=== PATIENT | female | born 1945 | race Caucasian/White ===

== ENCOUNTER 2018-12-04 19:16 | Inpatient (IN) | payer MEDICARE ==
--- NOTE | 2018-12-04 19:51 | RADIOLOGY REPORT (SQ) ---
EXAM DESCRIPTION: CHEST SINGLE VIEW COMPLETED DATE/TIME: 12/04/2018 7:40 pm REASON FOR STUDY: mp sepsis protocol COMPARISON: None. EXAM PARAMETERS: NUMBER OF VIEWS: One view. TECHNIQUE: Single frontal radiographic view of the chest acquired. RADIATION DOSE: NA LIMITATIONS: None. FINDINGS: LUNGS AND PLEURA: Hyperexpansion of the lungs. Increased opacification in the right base. MEDIASTINUM AND HILAR STRUCTURES: No masses. Contour normal. HEART AND VASCULAR STRUCTURES: Heart size is borderline. No janki pulmonary edema. BONES: No acute findings. HARDWARE: None in the chest. OTHER: No other significant finding. IMPRESSION: Chronic lung changes. Right lower lobe pneumonia. Cardiomegaly without pulmonary edema . TECHNICAL DOCUMENTATION: JOB ID: [id number] [employer]- All Rights Reserved Reading location - IP/workstation name: [email or web address]
[2018-12-04] MEDS ORDERED: ALBUTEROL SULFATE 0.083% NEB 2.5 MG/3 ML AMPUL NEB ONE (20:05)
--- NOTE | 2018-12-04 20:10 | ER Document Report ---
ED General - General Stated Complaint: SOB Time Seen by Provider: 12/04/18 19:27 Primary Care Provider: AMY MONSIVAIS MD [Primary Care Provider] - Follow up as needed TRAVEL OUTSIDE OF THE [place] IN LAST 30 DAYS: No - HPI Notes: Patient is a 73-year-old female that presents to the emergency department for chief complaint of shortness of breath. Patient has history of COPD and wears 2 L nasal cannula oxygen at home. Patient reports increased shortness of breath over the last 2 days. She has been using her home albuterol inhaler and nebulizer every 4-6 hours. She denies increased sputum production. Family states that she has been diaphoretic and having intermittent chills but they have not checked her temperature. Patient has been coughing denies change in her cough. She denies any nausea or vomiting. She does report a pain in her chest that is intermittent for the last 2 days as well. She describes it as a heaviness on the left side that radiates across to the right. She denies history of CAD. Patient did receive 125 mg of Solu- Medrol and 2 DuoNeb's by EMS prior to arrival and reports no improvement of symptoms. Patient denies previous intubations or requiring BiPAP for her COPD. Past Medical History: COPD, hypertension Past Surgical History: Reviewed in chart Social History: Former smoker. Denies alcohol. Lives at home Family History: Reviewed and noncontributory for presenting illness Allergies: Reviewed, see documented allergy list. REVIEW OF SYSTEMS: CONSTITUTIONAL : No fever chills diaphoresis No recent illness EENT: No vision changes No congestion No sore throat CARDIOVASCULAR: chest pain No palpitations RESPIRATORY: shortness of breath cough difficulty breathing GASTROINTESTINAL: No abdominal pain No nausea No vomiting No diarrhea GENITOURINARY: No dysuria No hematuria No difficulty urinating MUSCULOSKELETAL: No back pain No leg pain No arm pain SKIN: No rashes No lesions LYMPHATIC: No swollen, enlarged glands. NEUROLOGICAL: No lightheadedness No headache No weakness No paresthesias PSYCHIATRIC: No anxiety No depression PHYSICAL EXAMINATION: Vital signs reviewed, nursing noted reviewed. GENERAL: In moderate distress, diaphoretic, alert HEAD: Atraumatic, normocephalic. EYES: Eyes appear normal, extraocular movements intact, sclera anicteric, conjunctiva are normal. ENT: nares patent, oropharynx clear without exudates. Moist mucous membranes. NECK: Normal range of motion, supple without lymphadenopathy LUNGS: Breath sounds significantly diminished bilaterally with prolonged expiratory phase and end expiratory wheezing to auscultation bilaterally and equal. Tachypneic with accessory muscle use HEART: Tachycardic rate and regular rhythm without murmurs ABDOMEN: Soft, nontender, normoactive bowel sounds. No rebound, guarding, or rigidity. No masses appreciated. EXTREMITIES: Nontender, good range of motion, no pitting or edema. NEUROLOGICAL: No focal neurological deficits. Moves all extremities spontaneously Motor and sensory grossly intact on exam. PSYCH: Normal mood, normal affect. SKIN: Warm, diaphoretic, normal turgor, no rashes or lesions noted on exposed skin Past Medical History - Social History Smoking Status: Former Smoker Family History: Reviewed & Not Pertinent Physical Exam - Vital signs Vitals: Temp Pulse Resp BP Pulse Ox 97.5 F 111 H 26 H 165/88 H 94 12/04/18 19:47 12/04/18 19:47 12/04/18 19:47 12/04/18 19:47 12/04/18 19:47 Course - Re-evaluation Re-evalutation: 12/04/18 21:21 Vitals reviewed. Nursing notes reviewed. Patient was 88% on 4 L nasal cannula when she presented to the emergency room. She was tripoding with increased work of breathing. Patient was started on BiPAP and given albuterol. She did receive Solu-Medrol and DuoNeb prior to arrival by EMS. On reevaluation after BiPAP and aerosols patient appears much better. Her work of breathing has significantly decreased. She is still diminished to auscultation bilaterally with wheezing but is moving air better. Her O2 sat is stable. ABG shows hypercapnic respiratory failure. 12/04/18 21:39 Patient's chest x-ray shows right lower lobe pneumonia. She does have an elevated WBC count and is meeting sepsis criteria. Patient has received Rocephin and azithromycin. She was also given 1 L of normal saline. Her lab work also shows a hyponatremia. Patient is anemic which is chronic for her and not requiring blood transfusion. Her care was discussed with Dr. Monsivais who has requested that I consult Dr. Sanders and add a CTA of the chest on. He has accepted admission. I did page Dr. Curseen and left a message however he is not applications specialist tonight, consult has been placed in the computer. Patient has continued to improve on BiPAP but will remain on it for her hypercapnic respiratory failure. She is stable at time of admission Laboratory 12/04/18 12/04/18 12/04/18 20:50 20:50 20:50 WBC 12.9 H RBC 3.74 Hgb 10.8 L Hct 32.7 L MCV 87 MCH 28.8 MCHC 33.0 RDW 13.4 Plt Count 394 Total Counted 100 Seg Neutrophils % Not Reportable Seg Neuts % (Manual) 93 H Band Neutrophils % 2 L Lymphocytes % Not Reportable Lymphocytes % (Manual) 3 L Monocytes % Not Reportable Monocytes % (Manual) 2 L Eosinophils % Not Reportable Eosinophils % (Manual) 0 Basophils % Not Reportable Basophils % (Manual) 0 Absolute Neutrophils Not Reportable Abs Neuts (Manual) 12.3 H Absolute Lymphocytes Not Reportable Abs Lymphs (Manual) 0.4 L Absolute Monocytes Not Reportable Abs Monocytes (Manual) 0.3 Absolute Eosinophils Not Reportable Absolute Eos (Manual) 0.0 Absolute Basophils Not Reportable Abs Basophils (Manual) 0.0 Platelet Comment ADEQUATE Hypochromasia 1+ Stomatocytes 1+ PT 12.8 INR 0.96 Carbonic Acid HCO3/H2CO3 Ratio ABG pH ABG pCO2 ABG pO2 ABG HCO3 ABG Total CO2 ABG O2 Saturation ABG Base Excess FiO2 Sodium 129.2 L Potassium 4.6 Chloride 84 L Carbon Dioxide 37 H Anion Gap 8 BUN 15 Creatinine 0.31 L Est GFR ( Amer) > 60 Est GFR (Non-Af Amer) > 60 Glucose 169 H Calcium 9.0 Total Bilirubin 0.3 Direct Bilirubin 0.3 Neonat Total Bilirubin Not Reportable Neonat Direct Bilirubin Not Reportable Neonat Indirect Bili Not Reportable AST 17 ALT 15 Alkaline Phosphatase 113 Troponin I Total Protein 7.0 Albumin 3.7 12/04/18 12/04/18 20:50 20:59 WBC RBC Hgb Hct MCV MCH MCHC RDW Plt Count Total Counted Seg Neutrophils % Seg Neuts % (Manual) Band Neutrophils % Lymphocytes % Lymphocytes % (Manual) Monocytes % Monocytes % (Manual) Eosinophils % Eosinophils % (Manual) Basophils % Basophils % (Manual) Absolute Neutrophils Abs Neuts (Manual) Absolute Lymphocytes Abs Lymphs (Manual) Absolute Monocytes Abs Monocytes (Manual) Absolute Eosinophils Absolute Eos (Manual) Absolute Basophils Abs Basophils (Manual) Platelet Comment Hypochromasia Stomatocytes PT INR Carbonic Acid 2.22 H HCO3/H2CO3 Ratio 16:1 ABG pH 7.32 L ABG pCO2 73.8 H* ABG pO2 91.2 ABG HCO3 37.2 H ABG Total CO2 39.4 H ABG O2 Saturation 96.0 ABG Base Excess 8.7 FiO2 40% Sodium Potassium Chloride Carbon Dioxide Anion Gap BUN Creatinine Est GFR ( Amer) Est GFR (Non-Af Amer) Glucose Calcium Total Bilirubin Direct Bilirubin Neonat Total Bilirubin Neonat Direct Bilirubin Neonat Indirect Bili AST ALT Alkaline Phosphatase Troponin I 0.028 Total Protein Albumin Chest X-Ray 12/04/18 19:26 IMPRESSION: Chronic lung changes. Right lower lobe pneumonia. Cardiomegaly without pulmonary edema. - Vital Signs Vital signs: Temp Pulse Resp BP Pulse Ox 97.5 F 111 H 26 H 165/88 H 94 12/04/18 19:47 12/04/18 19:47 12/04/18 19:47 12/04/18 19:47 12/04/18 19:47 - Laboratory Result Diagrams: 12/04/18 20:50 12/04/18 20:50 Laboratory results interpreted by me: 12/04/18 12/04/18 12/04/18 20:50 20:50 20:59 WBC 12.9 H Hgb 10.8 L Hct 32.7 L Seg Neuts % (Manual) 93 H Band Neutrophils % 2 L Lymphocytes % (Manual) 3 L Monocytes % (Manual) 2 L Abs Neuts (Manual) 12.3 H Abs Lymphs (Manual) 0.4 L Carbonic Acid 2.22 H ABG pH 7.32 L ABG pCO2 73.8 H* ABG HCO3 37.2 H ABG Total CO2 39.4 H Sodium 129.2 L Chloride 84 L Carbon Dioxide 37 H Creatinine 0.31 L Glucose 169 H - EKG Interpretation by Me Additional EKG results interpreted by me: 12/04/18 20:09 Interpreted by myself 193: Sinus tachycardia, rate 112, normal axis, no ectopy, left bundle branch block Critical Care Note - Critical Care Note Total time excluding time spent on procedures (mins): 40 Comments: Critical care time 40 exclusive from separate billable procedures for a patient requiring complex medical decision making, and high potential for clinical deterioration. Time spent obtaining history from patient or surrogate, d iscussions with consultants, development of treatment plan with patient or surrogate, evaluation of patient's response to treatment, examination of patient, ordering and performing treatments and interventions, ordering and review of laboratory studies, re-evaluation of patient's condition, ordering and review of radiographic studies and review of old charts Discharge - Discharge Clinical Impression: COPD exacerbation, Hyponatremia RLL pneumonia Qualifiers: Pneumonia type: due to unspecified organism Qualified Code(s): J18.1 - Lobar pneumonia, unspecified organism Hypercapnic respiratory failure Qualifiers: Chronicity: acute Qualified Code(s): J96.02 - Acute respiratory failure with hypercapnia Sepsis Qualifiers: Sepsis type: sepsis due to unspecified organism Qualified Code(s): A41.9 - S epsis, unspecified organism Condition: Stable Disposition: ADMITTED INPATIENT Admitting Provider: Ish[facility] Unit Admitted: [facility]U Referrals: AMY MONSIVAIS MD [Primary Care Provider] - Follow up as needed
[2018-12-04] MEDS ORDERED: CEFTRIAXONE 1 GM/D5W RTU 1 GM/50 ML RTUPB IV ONE (20:38)
[2018-12-04] MEDS ORDERED: AZITHROMYCIN INJ 500 MG VIAL IV ONE (20:38)
[2018-12-04 21:08] LABS: HEMATOCRIT 32.7 % (36.0-47.0); HEMOGLOBIN 10.8 g/dL (12.0-15.5); MEAN CORPUSCULAR HEMOGLOBIN 28.8 pg (27.0-33.4); MEAN CORPUSCULAR VOLUME 87 fl (80-97); PLATELET COUNT 394 10^3/uL (150-450); RED BLOOD COUNT 3.74 10^6/uL (3.72-5.28); RED CELL DISTRIBUTION WIDTH 13.4 % (11.5-14.0); WHITE BLOOD COUNT 12.9 10^3/uL (4.0-10.5)
[2018-12-04 21:09] LABS: ARTERIAL BLOOD BASE EXCESS 8.7 mmol/L; ARTERIAL BLOOD H2CO3 2.22 mmol/L (1.05-1.35); ARTERIAL BLOOD HCO3 37.2 mmol/L (20-24); ARTERIAL BLOOD PH 7.32 (7.35-7.45); ARTERIAL BLOOD PO2 91.2 mmHg (80-100); ARTERIAL BLOOD TOTAL CO2 39.4 mmol/L (21-25)
[2018-12-04 21:13] LABS: ARTERIAL BLOOD FIO2 40%
[2018-12-04 21:13] LABS: INTERNATIONAL RATION (INR) 0.96; PROTHROMBIN TIME 12.8 SEC (11.4-15.4)
[2018-12-04 21:17] LABS: ARTERIAL BLOOD PCO2 73.8 mmHg (35-45)
--- NOTE | 2018-12-04 21:20 | EKG REPORT ---
SEVERITY:- ABNORMAL ECG - SINUS TACHYCARDIA BIATRIAL ABNORMALITIES LEFT BUNDLE BRANCH BLOCK : Confirmed by: Matt Thurman 04-Dec-2018 21:19:40
[2018-12-04 21:23] LABS: ALANINE AMINOTRANSFERASE 15 U/L (9-52); ALBUMIN 3.7 g/dL (3.5-5.0); ALKALINE PHOSPHATASE 113 U/L (38-126); ANION GAP 8 (5-19); ASPARTATE AMINO TRANSFERASE 17 U/L (14-36); BILIRUBIN,DIRECT 0.3 mg/dL (0.0-0.4); BILIRUBIN,TOTAL 0.3 mg/dL (0.2-1.3); BLOOD UREA NITROGEN 15 mg/dL (7-20); CARBON DIOXIDE 37 mmol/L (22-30); CHLORIDE 84 mmol/L (98-107); GLUCOSE 169 mg/dL (75-110); POTASSIUM 4.6 mmol/L (3.6-5.0)
[2018-12-04 21:29] LABS: ABSOLUTE LYMPHOCYTES# (MANUAL) 0.4 10^3/uL (0.5-4.7); ABSOLUTE MONOCYTES # (MANUAL) 0.3 10^3/uL (0.1-1.4); BAND NEUTROPHILS % (MANUAL) 2 % (3-5); BASOPHILS % (MANUAL) 0 % (0-2); EOSINOPHILS % (MANUAL) 0 % (0-6); LYMPHOCYTES % (MANUAL) 3 % (13-45); MONOCYTES % (MANUAL) 2 % (3-13); SEGMENTED NEUTROPHILS % (MAN) 93 % (42-78); TOTAL CELLS COUNTED 100
[2018-12-04 21:30] LABS: HYPOCHROMASIA 1+; STOMATOCYTES 1+
[2018-12-04 21:31] LABS: PLATELET COMMENT ADEQUATE
[2018-12-04] MEDS ORDERED: NORMAL SALINE 1000 ML 1,000 ML IV ONE (21:38)
[2018-12-04] MEDS ORDERED: METHYLPREDNISOLONE INJ 40 MG/1 ML SDV IV SCH (22:00)
[2018-12-04] MEDS ORDERED: METHYLPREDNISOLONE INJ 125 MG/2 ML SDV IV SCH (22:00)
[2018-12-04] MEDS ORDERED: CEFEPIME 2 GM/D5W RTU 50 ML IV SCH (22:00)
[2018-12-04 23:31] LABS: AMORPHOUS SEDIMENT,URINE TRACE /HPF; APPEARANCE,URINE CLOUDY; BILIRUBIN,URINE NEGATIVE (NEGATIVE); COLOR,URINE YELLOW; GLUCOSE, URINE NEGATIVE (NEGATIVE); KETONES,URINE NEGATIVE (NEGATIVE); LEUKOCYTE ESTERASE,URINE NEGATIVE (NEGATIVE); NITRITE,URINE NEGATIVE (NEGATIVE); PROTEIN,URINE 100 mg/dL (NEGATIVE); URINE SPECIFIC GRAVITY 1.014; UROBILINOGEN,URINE NEGATIVE mg/dL (<2.0)
[2018-12-05] MEDS: GUAIFENESIN 600 MG TABLET.SA PO SCH ×3 (02:34→22:23)
[2018-12-05] MEDS: LEVOFLOXACIN 500 MG/D5W RTU 500 MG/100 ML RTUPB IV SCH ×2 (02:40→22:23)
[2018-12-05] MEDS ORDERED: METHYLPREDNISOLONE INJ 125 MG/2 ML SDV IV ONE (02:45)
[2018-12-05] MEDS: FAMOTIDINE INJ/PF 20 MG/2 ML SDV IV SCH ×2 (02:54→09:21)
[2018-12-05] MEDS: NORMAL SALINE 1000 ML 1,000 ML IV PRN ×2 (02:57→22:36)
[2018-12-05] MEDS ORDERED: LEVOFLOXACIN 500 MG/D5W RTU 500 MG/100 ML RTUPB IV ONE (03:00)
[2018-12-05] MEDS: CEFEPIME 1 GM/D5W RTU 1 GM/50 ML RTUPB IV SCH (06:03)
[2018-12-05 06:13] LABS: HEMATOCRIT 30.9 % (36.0-47.0); HEMOGLOBIN 10.4 g/dL (12.0-15.5); MEAN CORPUSCULAR HEMOGLOBIN 29.5 pg (27.0-33.4); MEAN CORPUSCULAR HGB CONC 33.7 g/dL (32.0-36.0); MEAN CORPUSCULAR VOLUME 88 fl (80-97); PLATELET COUNT 320 10^3/uL (150-450); RED BLOOD COUNT 3.53 10^6/uL (3.72-5.28); RED CELL DISTRIBUTION WIDTH 13.7 % (11.5-14.0)
[2018-12-05 06:33] LABS: ANION GAP 9 (5-19); BLOOD UREA NITROGEN 13 mg/dL (7-20); CALCIUM 8.4 mg/dL (8.4-10.2); CARBON DIOXIDE 33 mmol/L (22-30); CHLORIDE 91 mmol/L (98-107); GLUCOSE 137 mg/dL (75-110); POTASSIUM 4.8 mmol/L (3.6-5.0)
[2018-12-05] MEDS: IPRATROPIUM/ALBUTEROL 0.5-2.5 MG/3 ML AMPUL NEB SCH ×4 (08:45→20:18)
--- NOTE | 2018-12-05 08:52 | PDOC H&P ---
History of Present Illness Admission Date/PCP: 12/04/18 22:35 AMY MONSIVAIS MD Patient complains of: Difficulty in breathing History of Present Illness: AMIRAH CHEW is a 73 year old female This is a 73-year-old female with a significant history of the COPD history of the Mycobacterium avium complexAnd history of the pulmonary nodules and history of the anemia currently see Dr. Solorzano as outpatients for the COPD and the nodules treated with a several antibiotic course for this on and off came to the emergency department with the increasing the more shortness of the breath for the last 2 daysAnd also increasing the sputum secretions with the yellowish- greenish color and not feeling well and the patient's oxygen saturations go down which he normally required to treat 2 to 3 L oxygen at home in emergency department patient was put on the BiPAP and feels better CO2 retention's was high When I saw the patient on the IMCU patient is currently on a BiPAP doing okay denied any chest pain denied any abdominal pain no nausea no vomiting Patient son on the bedside requesting to see Dr. Solorzano but is not available as per discussed with him will ask Dr. Sanders's to see him Patient to son on the bedside discussed with the patient's CODE STATUS patients do not want intubation and ventilations Start the patient on IV antibiotic nebulizer treatment since IV Solu-Medrol Past Medical History Pulmonary Medical History: Reports: Bronchitis, Chronic Obstructive Pulmonary Disease (COPD), Pneumonia, Other Pulmonary History Note: Mycobacterium avium complex GI Medical History: Reports: Gastroesophageal Reflux Disease Psychiatric Medical History: Reports: Depression Hematology: Reports: Anemia Social History Information Source: Patient Smoking Status: Former Smoker Frequency of Alcohol Use: None Hx Recreational Drug Use: No Hx Prescription Drug Abuse: No Family History Family History: Reviewed & Not Pertinent Parental Family History Reviewed: Yes Children Family History Reviewed: Yes Sibling(s) Family History Reviewed.: Yes Medication/Allergy Allergies/Adverse Reactions: codeine Allergy (Mild, Verified 12/05/18 02:28) erythromycin base Allergy (Mild, Verified 12/05/18 02:29) Review of Systems Constitutional: PRESENT: fever(s), weakness. ABSENT: chills, headache(s), weight gain, weight loss Eyes: ABSENT: visual disturbances Ears: ABSENT: hearing changes Cardiovascular: PRESENT: dyspnea on exertion. ABSENT: chest pain, edema, orthropnea, palpitations Respiratory: PRESENT: cough, dyspnea, sputum. ABSENT: hemoptysis Gastrointestinal: ABSENT: abdominal pain, constipation, diarrhea, hematemesis, hematochezia, nausea, vomiting Genitourinary: ABSENT: dysuria, hematuria Musculoskeletal: ABSENT: joint swelling Integumentary: ABSENT: rash, wounds Neurological: ABSENT: abnormal gait, abnormal speech, confusion, dizziness, focal weakness, syncope Psychiatric: ABSENT: anxiety, depression, homidical ideation, suicidal ideation Endocrine: ABSENT: cold intolerance, heat intolerance, menstrual abnormalities, polydipsia, polyuria Hematologic/Lymphatic: ABSENT: easy bleeding, easy bruising, lymphadenopathy Physical Exam Vital Signs: Temp Pulse Resp BP Pulse Ox 98.4 F 117 H 16 117/61 100 12/05/18 04:24 12/05/18 07:00 12/05/18 04:24 12/05/18 04:24 12/05/18 04:24 Intake & Output 12/04/18 12/05/18 12/06/18 06:59 06:59 06:59 Intake Total 1150 Output Total 500 Balance 650 Weight 36 kg Physical Exam: Currently on a BiPAP General appearance: PRESENT: no acute distress, mild distress, thin Head exam: PRESENT: atraumatic, normocephalic Eye exam: PRESENT: conjunctiva pink, EOMI, PERRLA. ABSENT: scleral icterus Ear exam: PRESENT: normal external ear exam Mouth exam: PRESENT: moist, tongue midline Neck exam: PRESENT: full ROM. ABSENT: carotid bruit, JVD, lymphadenopathy, thyromegaly Respiratory exam: PRESENT: decreased breath sounds, wheezes Cardiovascular exam: PRESENT: RRR. ABSENT: diastolic murmur, rubs, systolic murmur Vascular exam: PRESENT: normal capillary refill GI/Abdominal exam: PRESENT: normal bowel sounds, soft. ABSENT: distended, guarding, mass, organolmegaly, rebound, tenderness Rectal exam: PRESENT: deferred Extremities exam: ABSENT: pedal edema Neurological exam: PRESENT: alert, awake, oriented to person, oriented to place, oriented to time, oriented to situation, CN II-XII grossly intact. ABSENT: motor sensory deficit Psychiatric exam: PRESENT: appropriate affect, normal mood. ABSENT: homicidal ideation, suicidal ideation Skin exam: PRESENT: dry, intact, warm. ABSENT: cyanosis, rash Results Laboratory Results: 12/05/18 05:49 12/05/18 05:49 12/04/18 12/04/18 12/04/18 20:50 20:50 20:59 WBC 12.9 H RBC 3.74 Hgb 10.8 L Hct 32.7 L MCV 87 MCH 28.8 MCHC 33.0 RDW 13.4 Plt Count 394 Seg Neutrophils % Not Reportable Lymphocytes % Not Reportable Monocytes % Not Reportable Eosinophils % Not Reportable Basophils % Not Reportable Absolute Neutrophils Not Reportable Absolute Lymphocytes Not Reportable Absolute Monocytes Not Reportable Absolute Eosinophils Not Reportable Absolute Basophils Not Reportable Carbonic Acid 2.22 H HCO3/H2CO3 Ratio 16:1 ABG pH 7.32 L ABG pCO2 73.8 H* ABG pO2 91.2 ABG HCO3 37.2 H ABG O2 Saturation 96.0 ABG Base Excess 8.7 FiO2 40% Sodium 129.2 L Potassium 4.6 Chloride 84 L Carbon Dioxide 37 H Anion Gap 8 BUN 15 Creatinine 0.31 L Est GFR ( Amer) > 60 Est GFR (Non-Af Amer) > 60 Glucose 169 H Lactic Acid Calcium 9.0 Total Bilirubin 0.3 AST 17 ALT 15 Alkaline Phosphatase 113 Total Protein 7.0 Albumin 3.7 Urine Color Urine Appearance Urine pH Ur Specific [place] Urine Protein Urine Glucose (UA) Urine Ketones Urine Blood Urine Nitrite Ur Leukocyte Esterase Urine WBC (Auto) Urine RBC (Auto) 12/04/18 12/04/18 12/05/18 21:13 23:10 05:49 WBC 3.0 L RBC 3.53 L Hgb 10.4 L Hct 30.9 L MCV 88 MCH 29.5 MCHC 33.7 RDW 13.7 Plt Count 320 Seg Neutrophils % Lymphocytes % Monocytes % Eosinophils % Basophils % Absolute Neutrophils Absolute Lymphocytes Absolute Monocytes Absolute Eosinophils Absolute Basophils Carbonic Acid HCO3/H2CO3 Ratio ABG pH ABG pCO2 ABG pO2 ABG HCO3 ABG O2 Saturation ABG Base Excess FiO2 Sodium Potassium Chloride Carbon Dioxide Anion Gap BUN Creatinine Est GFR ( Amer) Est GFR (Non-Af Amer) Glucose Lactic Acid 1.0 Calcium Total Bilirubin AST ALT Alkaline Phosphatase Total Protein Albumin Urine Color YELLOW Urine Appearance CLOUDY Urine pH 7.0 Ur Specific [place] 1.014 Urine Protein 100 H Urine Glucose (UA) NEGATIVE Urine Ketones NEGATIVE Urine Blood SMALL H Urine Nitrite NEGATIVE Ur Leukocyte Esterase NEGATIVE Urine WBC (Auto) 4 Urine RBC (Auto) 19 12/05/18 05:49 WBC RBC Hgb Hct MCV MCH MCHC RDW Plt Count Seg Neutrophils % Lymphocytes % Monocytes % Eosinophils % Basophils % Absolute Neutrophils Absolute Lymphocytes Absolute Monocytes Absolute Eosinophils Absolute Basophils Carbonic Acid HCO3/H2CO3 Ratio ABG pH ABG pCO2 ABG pO2 ABG HCO3 ABG O2 Saturation ABG Base Excess FiO2 Sodium 133.0 L Potassium 4.8 Chloride 91 L Carbon Dioxide 33 H Anion Gap 9 BUN 13 Creatinine 0.25 L Est GFR ( Amer) > 60 Est GFR (Non-Af Amer) > 60 Glucose 137 H Lactic Acid Calcium 8.4 Total Bilirubin AST ALT Alkaline Phosphatase Total Protein Albumin Urine Color Urine Appearance Urine pH Ur Specific [place] Urine Protein Urine Glucose (UA) Urine Ketones Urine Blood Urine Nitrite Ur Leukocyte Esterase Urine WBC (Auto) Urine RBC (Auto) 12/04/18 20:50 Troponin I 0.028 Impressions: Chest X-Ray 12/04/18 19:26 IMPRESSION: Chronic lung changes. Right lower lobe pneumonia. Cardiomegaly without pulmonary edema. Assessment & Plan - Diagnosis (1) RLL pneumonia Qualifiers: Pneumonia type: due to unspecified organism Qualified Code(s): J18.1 - Lob ar pneumonia, unspecified organism Is this a current diagnosis for this admission?: Yes Plan: Get the sputum culture start on a broad-spectrum IV antibiotic (2) Hypercapnic respiratory failure Qualifiers: Chronicity: acute Qualified Code(s): J96.02 - Acute respiratory failure with hypercapnia Is this a current diagnosis for this admission?: Yes Plan: Currently put on a BiPAP repeat the ABG follow with the pulmonary as per discussed with Dr. Sanders (3) COPD exacerbation Is this a current diagnosis for this admission?: Yes Plan: Continues to nebulizer treatments and continues IV Solu-Medrol (4) Hyponatremia Is this a current diagnosis for this admission?: Yes Plan: Continues IV fluid (5) History of Mycobacterium avium complex infection Is this a current diagnosis for this admission?: Yes Plan: We will get the sputum culture (6) Hyperlipidemia Is this a current diagnosis for this admission?: Yes (7) Anemia Qualifiers: Anemia type: unspecified type Qualified Code(s): D64.9 - Anemia, unspecified Is this a current diagnosis for this admission?: Yes (8) History of solitary pulmonary nodule Is this a current diagnosis for this admission?: Yes Plan: We will get the CT of the chest for further evaluations - Time Time Spent: 50 to 70 Minutes Medications reviewed and adjusted accordingly: Yes Anticipated discharge: Other Within: Other - Inpatient Certification Based on my medical assessment, after consideration of the patient's comorbidities, presenting symptoms, or acuity I expect that the services needed warrant INPATIENT care.: Yes I certify that my determination is in accordance with my understanding of Medic are's requirements for reasonable and necessary INPATIENT services [42 CFR 412.3e].: Yes Medical Necessity: Need Close Monitoring Due to Risk of Patient Decompensation, Need For IV Fluids, Need for IV Antibiotics Post Hospital Care: D/C Diversity Specialist Documentation - Plan Summary Plan Summary: See MD orders Cussed with the patient and the son on the bedside regarding the patient's current conditions with the advanced COPD and discuss about the CODE STATUS patients do not want to put any intubations and ventilations Continues to IV antibiotics Discussed with the Dr. Sanders
[2018-12-05 09:16] LABS: ARTERIAL BLOOD BASE EXCESS 7.7 mmol/L; ARTERIAL BLOOD FIO2 40%; ARTERIAL BLOOD H2CO3 1.93 mmol/L (1.05-1.35); ARTERIAL BLOOD O2 SATURATION 97.6 % (94-98); ARTERIAL BLOOD PH 7.36 (7.35-7.45)
[2018-12-05] MEDS: ENOXAPARIN SODIUM INJ 30 MG/0.3 ML DISP.SYRIN SUBCUT SCH (09:20)
[2018-12-05] MEDS: METHYLPREDNISOLONE INJ 125 MG/2 ML SDV IV SCH ×2 (09:21→17:37)
[2018-12-05] MEDS ORDERED: ENOXAPARIN SODIUM INJ 40 MG/0.4 ML DISP.SYRIN SUBCUT SCH (10:00)
--- NOTE | 2018-12-05 11:33 | PDOC CONSULTATION ---
Consultation Consult Date: 12/05/18 Attending physician:: AMY MONSIVAIS Provider Consulted: JHONY GIBSON Consult reason:: Exacerbation of COPD History of Present Illness Admission Date/PCP: 12/04/18 22:35 AMY MONSIVAIS MD History of Present Illness: AMIRAH CHEW is a 73 year old female, presented to the emergency room with increasing shortness of breath she has COPD and chronic hypoxic hypercapnic respiratory failure. As well as having history of AVILA in the past she is normally treated by Dr. vaughan but is not available at this time. Still cough is productive of white phlegm. She denies hemoptysis or PPD was negative dates unknown. She states she had asthma as a child. She admits to exposure to large amounts of passive smoke as a child as well as an adult. She herself has smoked pack a day for 54 years and smokes up until the time of admission. One dog no recent travel intermittent episodes of tightness in her chest that really are relieved with her inhalers sleeps on one pillow admits to frequent PND as well as nocturnal cough rare edema is a snoring nocturia 3-4 times per night unrestful sleep and excessive daytime somnolence Past Medical History Pulmonary Medical History: Reports: Chronic Obstructive Pulmonary Disease (COPD) Psychiatric Medical History: Reports: Depression Social History Information Source: Patient, Relative, [facility] Records Smoking Status: Current Some Day Smoker Cigarettes Packs Per Day: 1 Number of Years Smokin Passive smoke exposure as: Both Frequency of Alcohol Use: None Hx Recreational Drug Use: No Hx Prescription Drug Abuse: No Do you have pets?: Yes Have you had any respiratory illnesses as a child?: Yes Have you been exposed to any sick contacts recently?: No Have you had any recent respiratory illnesses?: No Have you travelled outside of [place] in the past 12 months?: No Family History Parental Family History Reviewed: No Children Family History Reviewed: No Sibling(s) Family History Reviewed.: No Medication/Allergy Home Medications: Albuterol Sulfate [Proair HFA Inhalation Aerosol 8.5 gm MDI] 2 puff IH Q6HP PRN 12/05/18 Diltiazem HCl [Cartia Xt] 300 mg PO DAILY 12/05/18 Fluticasone Propionate [Flonase Nasal Reading 50 Mcg/Reading 16 gm] 1 spray NASL DAILY 12/05/18 Fluticasone/Salmeterol [Advair 250-50 Diskus 14 Dose/Diskus] 1 puff IH Q12 12/05/18 Montelukast Sodium [Singulair 10 mg Tablet] 10 mg PO QPM 12/05/18 Omeprazole 20 mg PO DAILY 12/05/18 Polyethylene Glycol 3350 [Miralax Powder 17 gm/Packet] 17 gm PO DAILY 12/05/18 Tiotropium [place] [Spiriva Handihaler 5 Cap/Kit (18 Mcg/Cap)] 1 cap IH DAILY 12/05/18 Allergies/Adverse Reactions: codeine Allergy (Mild, Verified 12/05/18 02:28) erythromycin base Allergy (Mild, Verified 12/05/18 02:29) Review of Systems Constitutional: PRESENT: fatigue, weakness Eyes: ABSENT: visual disturbances Ears: ABSENT: hearing changes Cardiovascular: PRESENT: dyspnea on exertion, orthropnea. ABSENT: palpitations Respiratory: PRESENT: cough, dyspnea, sputum. ABSENT: hemoptysis Gastrointestinal: ABSENT: abdominal pain, bloating, coffee ground emesis, constipation, diarrhea, dysphagia, heartburn, hematemesis, hematochezia, melena Genitourinary: ABSENT: dysuria, hematuria Musculoskeletal: ABSENT: deformity, joint swelling Integumentary: ABSENT: pruritus, rash Neurological: ABSENT: abnormal gait, abnormal movements, abnormal speech, frequent falls, lack of coordination, memory loss Psychiatric: ABSENT: hallucinations, homidical ideation, suicidal ideation Endocrine: ABSENT: cold intolerance, heat intolerance Hematologic/Lymphatic: ABSENT: easy bruising, lymphadenopathy Allergic/Immunologic: ABSENT: seasonal rhinorrhea Physical Exam Vital Signs: Temp Pulse Resp BP Pulse Ox 98.4 F 117 H 16 117/61 100 12/05/18 04:24 12/05/18 07:00 12/05/18 04:24 12/05/18 04:24 12/05/18 04:24 Intake & Output 12/04/18 12/05/18 12/06/18 06:59 06:59 06:59 Intake Total 1150 Output Total 500 Balance 650 Weight 36 kg General appearance: PRESENT: no acute distress, cooperative, disheveled, thin Head exam: PRESENT: atraumatic, normocephalic Eye exam: PRESENT: conjunctiva pale, EOMI. ABSENT: nystagmus, periorbital swell ing Mouth exam: PRESENT: dry mucosa, neck supple, tongue midline Teeth exam: PRESENT: edentulous Neck exam: ABSENT: carotid bruit, [place] - [address], JVD, lymphadenopathy, meningismus, tenderness, thyromegaly, tracheal deviation, tracheostomy, other Respiratory exam: PRESENT: decreased breath sounds, prolonged expiratory phas, rales, rhonchi, symmetrical, unlabored. ABSENT: retraction, stridor, tachypnea Cardiovascular exam: PRESENT: RRR, +S1, +S2. ABSENT: tachycardia Pulses: PRESENT: normal radial pulses GI/Abdominal exam: PRESENT: soft. ABSENT: mass, tenderness Extremities exam: ABSENT: calf tenderness, clubbing, joint swelling Musculoskeletal exam: ABSENT: deformity, dislocation Neurological exam: PRESENT: alert, awake Psychiatric exam: PRESENT: appropriate affect Skin exam: PRESENT: dry, warm - [address]706 Results Laboratory Results: 12/05/18 05:49 12/05/18 05:49 12/04/18 12/04/18 12/04/18 20:50 20:50 20:59 WBC 12.9 H RBC 3.74 Hgb 10.8 L Hct 32.7 L MCV 87 MCH 28.8 MCHC 33.0 RDW 13.4 Plt Count 394 Seg Neutrophils % Not Reportable Lymphocytes % Not Reportable Monocytes % Not Reportable Eosinophils % Not Reportable Basophils % Not Reportable Absolute Neutrophils Not Reportable Absolute Lymphocytes Not Reportable Absolute Monocytes Not Reportable Absolute Eosinophils Not Reportable Absolute Basophils Not Reportable Carbonic Acid 2.22 H HCO3/H2CO3 Ratio 16:1 ABG pH 7.32 L ABG pCO2 73.8 H* ABG pO2 91.2 ABG HCO3 37.2 H ABG O2 Saturation 96.0 ABG Base Excess 8.7 FiO2 40% Sodium 129.2 L Potassium 4.6 Chloride 84 L Carbon Dioxide 37 H Anion Gap 8 BUN 15 Creatinine 0.31 L Est GFR ( Amer) > 60 Est GFR (Non-Af Amer) > 60 Glucose 169 H Lactic Acid Calcium 9.0 Total Bilirubin 0.3 AST 17 ALT 15 Alkaline Phosphatase 113 Total Protein 7.0 Albumin 3.7 Urine Color Urine Appearance Urine pH Ur Specific Dawson Urine Protein Urine Glucose (UA) Urine Ketones Urine Blood Urine Nitrite Ur Leukocyte Esterase Urine WBC (Auto) Urine RBC (Auto) 12/04/18 12/04/18 12/05/18 21:13 23:10 05:49 WBC 3.0 L RBC 3.53 L Hgb 10.4 L Hct 30.9 L MCV 88 MCH 29.5 MCHC 33.7 RDW 13.7 Plt Count 320 Seg Neutrophils % Lymphocytes % Monocytes % Eosinophils % Basophils % Absolute Neutrophils Absolute Lymphocytes Absolute Monocytes Absolute Eosinophils Absolute Basophils Carbonic Acid HCO3/H2CO3 Ratio ABG pH ABG pCO2 ABG pO2 ABG HCO3 ABG O2 Saturation ABG Base Excess FiO2 Sodium Potassium Chloride Carbon Dioxide Anion Gap BUN Creatinine Est GFR ( Amer) Est GFR (Non-Af Amer) Glucose Lactic Acid 1.0 Calcium Total Bilirubin AST ALT Alkaline Phosphatase Total Protein Albumin Urine Color YELLOW Urine Appearance CLOUDY Urine pH 7.0 Ur Specific Dawson 1.014 Urine Protein 100 H Urine Glucose (UA) NEGATIVE Urine Ketones NEGATIVE Urine Blood SMALL H Urine Nitrite NEGATIVE Ur Leukocyte Esterase NEGATIVE Urine WBC (Auto) 4 Urine RBC (Auto) 12/05/18 05:49 WBC RBC Hgb Hct MCV MCH MCHC RDW Plt Count Seg Neutrophils % Lymphocytes % Monocytes % Eosinophils % Basophils % Absolute Neutrophils Absolute Lymphocytes Absolute Monocytes Absolute Eosinophils Absolute Basophils Carbonic Acid HCO3/H2CO3 Ratio ABG pH ABG pCO2 ABG pO2 ABG HCO3 ABG O2 Saturation ABG Base Excess FiO2 Sodium 133.0 L Potassium 4.8 Chloride 91 L Carbon Dioxide 33 H Anion Gap 9 BUN 13 Creatinine 0.25 L Est GFR ( Amer) > 60 Est GFR (Non-Af Amer) > 60 Glucose 137 H Lactic Acid Calcium 8.4 Total Bilirubin AST ALT Alkaline Phosphatase Total Protein Albumin Urine Color Urine Appearance Urine pH Ur Specific Dawson Urine Protein Urine Glucose (UA) Urine Ketones Urine Blood Urine Nitrite Ur Leukocyte Esterase Urine WBC (Auto) Urine RBC (Auto) 12/04/18 20:50 Troponin I 0.028 Impressions: Chest X-Ray 12/04/18 19:26 IMPRESSION: Chronic lung changes. Right lower lobe pneumonia. Cardiomegaly without pulmonary edema. Assessment & Plan - Diagnosis (1) COPD exacerbation Is this a current diagnosis for this admission?: Yes Plan: Continue current bronchodilator therapy (2) History of Mycobacterium avium complex infection Is this a current diagnosis for this admission?: Yes Plan: Sputum's for AFB daily x3 patient does not need to be on isolation (3) Hypercapnic respiratory failure Qualifiers: Chronicity: acute Qualified Code(s): J96.02 - Acute respiratory failure with hypercapnia Is this a current diagnosis for this admission?: Yes Plan: NIPPV
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
[2018-12-05] MEDS: ACETAMINOPHEN 325 MG TABLET PO PRN (15:52)
[2018-12-06] MEDS: METHYLPREDNISOLONE INJ 125 MG/2 ML SDV IV SCH (01:37)
[2018-12-06] MEDS: ACETAMINOPHEN 325 MG TABLET PO PRN (01:51)
[2018-12-06] MEDS: CEFEPIME 1 GM/D5W RTU 1 GM/50 ML RTUPB IV SCH (05:09)
[2018-12-06 05:37] LABS: HEMATOCRIT 29.2 % (36.0-47.0); HEMOGLOBIN 9.7 g/dL (12.0-15.5); MEAN CORPUSCULAR HGB CONC 33.3 g/dL (32.0-36.0); MEAN CORPUSCULAR VOLUME 87 fl (80-97); PLATELET COUNT 330 10^3/uL (150-450); RED BLOOD COUNT 3.36 10^6/uL (3.72-5.28); RED CELL DISTRIBUTION WIDTH 13.1 % (11.5-14.0); WHITE BLOOD COUNT 4.4 10^3/uL (4.0-10.5)
[2018-12-06 05:55] LABS: BLOOD UREA NITROGEN 17 mg/dL (7-20); CARBON DIOXIDE 35 mmol/L (22-30); GLUCOSE 119 mg/dL (75-110); POTASSIUM 4.9 mmol/L (3.6-5.0)
[2018-12-06 06:01] LABS: CHLORIDE 92 mmol/L (98-107)
[2018-12-06 06:06] LABS: ANION GAP 5 (5-19)
--- NOTE | 2018-12-06 07:48 | PDOC PROGRESS REPORT ---
Subjective Progress Note for:: 12/06/18 Subjective:: Patient is currently doing fair Denied any chest pain to than any shortness of the breath Patient has some oral thrush Patient is denied any difficulty in breathing Patient seen by the pulmonary Reason For Visit: PNEUMONIA Physical Exam Vital Signs: Temp Pulse Resp BP Pulse Ox 97.7 F 95 15 126/66 H 98 12/06/18 03:36 12/06/18 03:36 12/06/18 04:03 12/06/18 03:36 12/06/18 04:03 Intake & Output 12/05/18 12/06/18 12/07/18 06:59 06:59 06:59 Intake Total 1150 1892 Output Total 500 100 Balance 650 1792 Weight 36 kg 38.7 kg General appearance: PRESENT: no acute distress, thin Head exam: PRESENT: atraumatic, normocephalic Eye exam: PRESENT: conjunctiva pink, EOMI, PERRLA. ABSENT: scleral icterus Ear exam: PRESENT: normal external ear exam Mouth exam: PRESENT: moist, tongue midline Additional comments: Oral thrush is present Neck exam: PRESENT: full ROM. ABSENT: carotid bruit, JVD, lymphadenopathy, thyromegaly Respiratory exam: PRESENT: decreased breath sounds Cardiovascular exam: PRESENT: RRR. ABSENT: diastolic murmur, rubs, systolic murmur Pulses: PRESENT: normal dorsalis pedis pul, +2 pedal pulses bilateral Vascular exam: PRESENT: normal capillary refill GI/Abdominal exam: PRESENT: normal bowel sounds, soft. ABSENT: distended, guarding, mass, organolmegaly, rebound, tenderness Rectal exam: PRESENT: deferred Neurological exam: PRESENT: alert, awake, oriented to person, oriented to place, oriented to time, oriented to situation, CN II-XII grossly intact. ABSENT: motor sensory deficit Psychiatric exam: PRESENT: appropriate affect, normal mood. ABSENT: homicidal ideation, suicidal ideation Skin exam: PRESENT: dry, intact, warm. ABSENT: cyanosis, rash Results Laboratory Results: 12/06/18 05:13 12/06/18 05:13 12/05/18 12/06/18 12/06/18 06:30 05:13 05:13 WBC 4.4 RBC 3.36 L Hgb 9.7 L Hct 29.2 L MCV 87 MCH 29.0 MCHC 33.3 RDW 13.1 Plt Count 330 Carbonic Acid 1.93 H HCO3/H2CO3 Ratio 18:1 ABG pH 7.36 ABG pCO2 64.0 H ABG pO2 108.0 H ABG HCO3 35.0 H ABG O2 Saturation 97.6 ABG Base Excess 7.7 FiO2 40% Sodium 131.9 L Potassium 4.9 Chloride 92 L Carbon Dioxide 35 H Anion Gap 5 BUN 17 Creatinine 0.30 L Est GFR ( Amer) > 60 Est GFR (Non-Af Amer) > 60 Glucose 119 H Calcium 8.0 L 12/04/18 20:50 Troponin I 0.028 Impressions: Chest X-Ray 12/04/18 19:26 IMPRESSION: Chronic lung changes. Right lower lobe pneumonia. Cardiomegaly without pulmonary edema. Chest CT 12/05/18 00:00 IMPRESSION: Bilateral emphysematous changes with subpleural scar as described. There is some focal airspace disease along the right minor fissure probably atelectasis. There is a single indeterminate nodule in the right upper lobe medially as described most likely scar as well. Assessment & Plan - Diagnosis (1) RLL pneumonia Qualifiers: Pneumonia type: due to unspecified organism Qualified Code(s): J18.1 - Lobar pneumonia, unspecified organism Is this a current diagnosis for this admission?: Yes Plan: Get the sputum culture start on a broad-spectrum IV antibiotic (2) Hypercapnic respiratory failure Qualifiers: Chronicity: acute Qualified Code(s): J96.02 - Acute respiratory failure with hypercapnia Is this a current diagnosis for this admission?: Yes Plan: Continues on a BiPAP follow with the pulmonary (3) COPD exacerbation Is this a current diagnosis for this admission?: Yes Plan: all improving reduce the IV steroid (4) Hyponatremia Is this a current diagnosis for this admission?: Yes Plan: Continues IV fluid (5) History of Mycobacterium avium complex infection Is this a current diagnosis for this admission?: Yes Plan: We will get the sputum culture (6) Hyperlipidemia Is this a current diagnosis for this admission?: Yes (7) Anemia Qualifiers: Anemia type: unspecified type Qualified Code(s): D64.9 - Anemia, unspecified Is this a current diagnosis for this admission?: Yes (8) History of solitary pulmonary nodule Is this a current diagnosis for this admission?: Yes Plan: T of the chest is all stable (9) Oral thrush Is this a current diagnosis for this admission?: Yes Plan: Start on nystatin suspension - Time Time Spent with patient: 25-34 minutes Medications reviewed and adjusted accordingly: Yes Anticipated discharge: Home Within: Other - Plan Summary Plan Summary: See MD orders discussed with the nursing staff no other concerns
[2018-12-06] MEDS: IPRATROPIUM/ALBUTEROL 0.5-2.5 MG/3 ML AMPUL NEB SCH ×4 (08:24→20:19)
[2018-12-06] MEDS ORDERED: METHYLPREDNISOLONE INJ 125 MG/2 ML SDV IV SCH (10:00)
[2018-12-06] MEDS ORDERED: (PENDING PHARMACY ID) (Diltiazem Hcl [Cartia Xt] 300 MG) PO SCH (10:00)
[2018-12-06] MEDS: DILTIAZEM HCL 120 MG CAP.SR.24H PO SCH (10:15)
[2018-12-06] MEDS: PANTOPRAZOLE SODIUM 20 MG TABLET.DR PO SCH (10:15)
[2018-12-06] MEDS: FLUCONAZOLE 100 MG TABLET PO SCH (10:15)
[2018-12-06] MEDS: ENOXAPARIN SODIUM INJ 30 MG/0.3 ML DISP.SYRIN SUBCUT SCH (10:15)
[2018-12-06] MEDS: METHYLPREDNISOLONE INJ 40 MG/1 ML SDV IV SCH ×2 (10:15→17:17)
[2018-12-06] MEDS: POLYETHYLENE GLYCOL 3350 POWDER 17 GM/1 PACKET PO SCH (10:15)
[2018-12-06] MEDS: DILTIAZEM HCL 180 MG CAPSULE.CR PO SCH (10:15)
[2018-12-06] MEDS: NYSTATIN 500000 UNIT/5 ML UDCUP PO SCH ×3 (10:15→21:17)
[2018-12-06] MEDS: GUAIFENESIN 600 MG TABLET.SA PO SCH ×2 (10:15→21:17)
[2018-12-06] MEDS ORDERED: DEXTROSE 50%-WATER SYRINGE 12.5 GM/25 ML DOSE IV PRN (13:00)
[2018-12-06] MEDS ORDERED: GLUCAGON,HUMAN RECOMB 1 MG INJ IM PRN (13:00)
[2018-12-06] MEDS ORDERED: DEXTROSE 50%-WATER SYRINGE 25 GM/50 ML DOSE IV PRN (13:00)
[2018-12-06] MEDS ORDERED: DEXTROSE 40% GEL 15 GM TUBE X 2 PO PRN (13:00)
[2018-12-06] MEDS ORDERED: DEXTROSE 40% GEL 15 GM TUBE PO PRN (13:00)
[2018-12-06 13:38] LABS: ARTERIAL BLOOD BASE EXCESS 6.8 mmol/L; ARTERIAL BLOOD H2CO3 1.81 mmol/L (1.05-1.35); ARTERIAL BLOOD HCO3 34.2 mmol/L (20-24); ARTERIAL BLOOD O2 SATURATION 96.7 % (94-98); ARTERIAL BLOOD PCO2 60.1 mmHg (35-45); ARTERIAL BLOOD PH 7.37 (7.35-7.45); ARTERIAL BLOOD PO2 92.7 mmHg (80-100)
[2018-12-06 13:42] LABS: ARTERIAL BLOOD FIO2 35%
[2018-12-06] MEDS: FLUTICASONE NASAL SPRAY 50 MCG/SPRY 120 SPRAY/16 GM NASL SCH (14:20)
[2018-12-06] MEDS: TIOTROPIUM BROMIDE DPI 5 CAP/KIT (18 MCG/CAP) IH SCH (14:21)
[2018-12-06] MEDS: INSULIN LISPRO 100 UNIT/ML 3 ML VIAL SUBCUT SCH ×2 (17:18→22:00)
[2018-12-06] MEDS: NORMAL SALINE 1000 ML 1,000 ML IV PRN (21:17)
[2018-12-06] MEDS: LEVOFLOXACIN 500 MG/D5W RTU 500 MG/100 ML RTUPB IV SCH (21:17)
[2018-12-07] MEDS: METHYLPREDNISOLONE INJ 40 MG/1 ML SDV IV SCH ×3 (02:21→17:35)
[2018-12-07] MEDS: NYSTATIN 500000 UNIT/5 ML UDCUP PO SCH ×4 (02:21→21:38)
[2018-12-07] MEDS: ACETAMINOPHEN 325 MG TABLET PO PRN ×2 (02:22→21:49)
[2018-12-07] MEDS: LEVALBUTEROL HCL NEB 1.25 MG/3 ML AMPUL NEB PRN (02:49)
[2018-12-07] MEDS: CEFEPIME 1 GM/D5W RTU 1 GM/50 ML RTUPB IV SCH (05:23)
[2018-12-07 05:28] LABS: HEMATOCRIT 30.4 % (36.0-47.0); HEMOGLOBIN 10.1 g/dL (12.0-15.5); MEAN CORPUSCULAR HEMOGLOBIN 29.1 pg (27.0-33.4); MEAN CORPUSCULAR HGB CONC 33.3 g/dL (32.0-36.0); MEAN CORPUSCULAR VOLUME 87 fl (80-97); PLATELET COUNT 315 10^3/uL (150-450); RED BLOOD COUNT 3.48 10^6/uL (3.72-5.28); RED CELL DISTRIBUTION WIDTH 13.2 % (11.5-14.0); WHITE BLOOD COUNT 4.3 10^3/uL (4.0-10.5)
[2018-12-07 05:45] LABS: ANION GAP 4 (5-19); BLOOD UREA NITROGEN 17 mg/dL (7-20); CALCIUM 8.6 mg/dL (8.4-10.2); CARBON DIOXIDE 37 mmol/L (22-30); CHLORIDE 95 mmol/L (98-107); GLUCOSE 139 mg/dL (75-110); POTASSIUM 5.8 mmol/L (3.6-5.0)
[2018-12-07] MEDS: IPRATROPIUM/ALBUTEROL 0.5-2.5 MG/3 ML AMPUL NEB SCH ×4 (08:12→20:33)
[2018-12-07] MEDS ORDERED: SODIUM POLYSTYRENE SULFONATE 15 GM/60 ML PO ONE (08:15)
--- NOTE | 2018-12-07 08:23 | PDOC PROGRESS REPORT ---
Subjective Progress Note for:: 12/07/18 Subjective:: Patient is currently doing fair Depressed because her is going to the hospice care patient is worried about too much Patient is denied any chest pain Still have a cough Patient's potassium is elevated today Reason For Visit: PNEUMONIA Physical Exam Vital Signs: Temp Pulse Resp BP Pulse Ox 97.4 F 91 19 126/69 H 100 12/07/18 03:27 12/07/18 08:12 12/07/18 08:12 12/07/18 03:27 12/07/18 08:12 Intake & Output 12/06/18 12/07/18 12/08/18 06:59 06:59 06:59 Intake Total 1892 1596 654 Output Total 100 1150 Balance 1792 446 654 Weight 38.7 kg 40.8 kg General appearance: PRESENT: no acute distress, thin Head exam: PRESENT: atraumatic, normocephalic Eye exam: PRESENT: conjunctiva pink, EOMI, PERRLA. ABSENT: scleral icterus Ear exam: PRESENT: normal external ear exam Mouth exam: PRESENT: moist, tongue midline Neck exam: PRESENT: full ROM. ABSENT: carotid bruit, JVD, lymphadenopathy, thyromegaly Respiratory exam: PRESENT: decreased breath sounds, rhonchi Cardiovascular exam: PRESENT: RRR. ABSENT: diastolic murmur, rubs, systolic murmur Vascular exam: PRESENT: normal capillary refill GI/Abdominal exam: PRESENT: normal bowel sounds, soft. ABSENT: distended, guarding, mass, organolmegaly, rebound, tenderness Rectal exam: PRESENT: deferred Neurological exam: PRESENT: alert, awake, oriented to person, oriented to place, oriented to time, oriented to situation, CN II-XII grossly intact. ABSENT: motor sensory deficit Psychiatric exam: PRESENT: appropriate affect, normal mood. ABSENT: homicidal ideation, suicidal ideation Skin exam: PRESENT: dry, intact, warm. ABSENT: cyanosis, rash Results Laboratory Results: 12/07/18 04:43 12/07/18 04:43 12/06/18 12/07/18 12/07/18 12:58 04:43 04:43 WBC 4.3 RBC 3.48 L Hgb 10.1 L Hct 30.4 L MCV 87 MCH 29.1 MCHC 33.3 RDW 13.2 Plt Count 315 Carbonic Acid 1.81 H HCO3/H2CO3 Ratio 18:1 ABG pH 7.37 ABG pCO2 60.1 H ABG pO2 92.7 ABG HCO3 34.2 H ABG O2 Saturation 96.7 ABG Base Excess 6.8 FiO2 35% Sodium 135.7 L Potassium 5.8 H Chloride 95 L Carbon Dioxide 37 H Anion Gap 4 L BUN 17 Creatinine 0.35 L Est GFR ( Amer) > 60 Est GFR (Non-Af Amer) > 60 Glucose 139 H Calcium 8.6 12/04/18 23:10 Clean Catch Midstream Urine Culture - Final Mixed Urogenital Nadege 12/04/18 20:50 Troponin I 0.028 Impressions: Chest X-Ray 12/04/18 19:26 IMPRESSION: Chronic lung changes. Right lower lobe pneumonia. Cardiomegaly without pulmonary edema. Chest CT 12/05/18 00:00 IMPRESSION: Bilateral emphysematous changes with subpleural scar as described. There is some focal airspace disease along the right minor fissure probably atelectasis. There is a single indeterminate nodule in the right upper lobe medially as described most likely scar as well. Assessment & Plan - Diagnosis (1) RLL pneumonia Qualifiers: Pneumonia type: due to unspecified organism Qualified Code(s): J18.1 - Lobar pneumonia, unspecified organism Is this a current diagnosis for this admission?: Yes Plan: We will repeat the chest x-ray continues to current antibiotic (2) Hypercapnic respiratory failure Qualifiers: Chronicity: acute Qualified Code(s): J96.02 - Acute respiratory failure with hypercapnia Is this a current diagnosis for this admission?: Yes Plan: Continues to follow with the pulmonary (3) COPD exacerbation Is this a current diagnosis for this admission?: Yes Plan: Continues to nebulizer treatments (4) Hyponatremia Is this a current diagnosis for this admission?: Yes Plan: Continues IV fluid (5) History of Mycobacterium avium complex infection Is this a current diagnosis for this admission?: Yes Plan: We will get the sputum culture (6) Hyperlipidemia Is this a current diagnosis for this admission?: Yes (7) Anemia Qualifiers: Anemia type: unspecified type Qualified Code(s): D64.9 - Anemia, u nspecified Is this a current diagnosis for this admission?: Yes (8) History of solitary pulmonary nodule Is this a current diagnosis for this admission?: Yes Plan: Currently all stable (9) Oral thrush Is this a current diagnosis for this admission?: Yes - Time Time Spent with patient: 15-24 minutes Medications reviewed and adjusted accordingly: Yes Anticipated discharge: Other Within: Other - Plan Summary Plan Summary: Discussed with the nursing staff low potassium diet Give 1 dose of Kayexalate With the potassiums today Repeat the chest x-ray IV fluidStop Physical therapy evaluations
[2018-12-07] MEDS: INSULIN LISPRO 100 UNIT/ML 3 ML VIAL SUBCUT SCH ×4 (08:57→21:47)
--- NOTE | 2018-12-07 10:26 | RADIOLOGY REPORT (SQ) ---
EXAM DESCRIPTION: CHEST SINGLE VIEW COMPLETED DATE/TIME: 12/07/2018 10:16 am REASON FOR STUDY: Pneumonia COMPARISON: 12/04/2018. NUMBER OF VIEWS: One view. TECHNIQUE: Single frontal radiographic view of the chest acquired. LIMITATIONS: None. FINDINGS: LUNGS AND PLEURA: Improved aeration. Chronic interstitial changes. No focal infiltrates, masses or pneumothorax. No pleural effusion. Attenuated blood vessels and flattened ernesto-diaphragms. MEDIASTINUM AND HILAR STRUCTURES: No masses. Contour normal. HEART AND VASCULAR STRUCTURES: Heart normal in size. Normal vasculature. BONES: No acute findings. HARDWARE: None in the chest. OTHER: No other significant finding. IMPRESSION: COPD. CHRONIC SCARRING. NO ACUTE RADIOGRAPHIC FINDING IN THE CHEST. TECHNICAL DOCUMENTATION: JOB ID: [id number] 2015 [employer]- All Rights Reserved Reading location - IP/workstation name: [email or web address]
[2018-12-07] MEDS: GUAIFENESIN 600 MG TABLET.SA PO SCH ×2 (10:28→21:38)
[2018-12-07] MEDS: FLUCONAZOLE 100 MG TABLET PO SCH (10:28)
[2018-12-07] MEDS: DILTIAZEM HCL 120 MG CAP.SR.24H PO SCH (10:28)
[2018-12-07] MEDS: PANTOPRAZOLE SODIUM 20 MG TABLET.DR PO SCH (10:28)
[2018-12-07] MEDS: DILTIAZEM HCL 180 MG CAPSULE.CR PO SCH (10:31)
[2018-12-07] MEDS: ENOXAPARIN SODIUM INJ 30 MG/0.3 ML DISP.SYRIN SUBCUT SCH (10:40)
[2018-12-07] MEDS: POLYETHYLENE GLYCOL 3350 POWDER 17 GM/1 PACKET PO SCH (10:44)
[2018-12-07] MEDS: TIOTROPIUM BROMIDE DPI 5 CAP/KIT (18 MCG/CAP) IH SCH (12:34)
[2018-12-07] MEDS: FLUTICASONE NASAL SPRAY 50 MCG/SPRY 120 SPRAY/16 GM NASL SCH (12:34)
[2018-12-07 13:24] LABS: ARTERIAL BLOOD BASE EXCESS 6.9 mmol/L; ARTERIAL BLOOD H2CO3 1.88 mmol/L (1.05-1.35); ARTERIAL BLOOD HCO3 34.2 mmol/L (20-24); ARTERIAL BLOOD O2 SATURATION 93.5 % (94-98); ARTERIAL BLOOD PCO2 62.5 mmHg (35-45); ARTERIAL BLOOD PH 7.36 (7.35-7.45); ARTERIAL BLOOD PO2 72.5 mmHg (80-100); ARTERIAL BLOOD TOTAL CO2 36.1 mmol/L (21-25)
[2018-12-07 13:25] LABS: ARTERIAL BLOOD FIO2 4.5L
[2018-12-07] MEDS: LEVOFLOXACIN 500 MG/D5W RTU 500 MG/100 ML RTUPB IV SCH (21:38)
[2018-12-08] MEDS: NYSTATIN 500000 UNIT/5 ML UDCUP PO SCH ×4 (02:49→21:03)
[2018-12-08] MEDS: METHYLPREDNISOLONE INJ 40 MG/1 ML SDV IV SCH (02:49)
[2018-12-08] MEDS: LEVALBUTEROL HCL NEB 1.25 MG/3 ML AMPUL NEB PRN (03:51)
[2018-12-08] MEDS: CEFEPIME 1 GM/D5W RTU 1 GM/50 ML RTUPB IV SCH (05:00)
[2018-12-08 05:38] LABS: HEMATOCRIT 29.7 % (36.0-47.0); HEMOGLOBIN 9.9 g/dL (12.0-15.5); MEAN CORPUSCULAR HEMOGLOBIN 29.3 pg (27.0-33.4); MEAN CORPUSCULAR HGB CONC 33.5 g/dL (32.0-36.0); MEAN CORPUSCULAR VOLUME 88 fl (80-97); PLATELET COUNT 298 10^3/uL (150-450); RED BLOOD COUNT 3.39 10^6/uL (3.72-5.28); RED CELL DISTRIBUTION WIDTH 13.2 % (11.5-14.0); WHITE BLOOD COUNT 3.7 10^3/uL (4.0-10.5)
[2018-12-08 05:57] LABS: BLOOD UREA NITROGEN 15 mg/dL (7-20); CHLORIDE 92 mmol/L (98-107); GLUCOSE 143 mg/dL (75-110)
[2018-12-08 06:29] LABS: POTASSIUM 4.3 mmol/L (3.6-5.0)
[2018-12-08 06:30] LABS: ANION GAP 3 (5-19)
[2018-12-08 06:34] LABS: CARBON DIOXIDE 40 mmol/L (22-30)
[2018-12-08 07:17] LABS: ABSOLUTE LYMPHOCYTES# (MANUAL) 0.1 10^3/uL (0.5-4.7); ABSOLUTE MONOCYTES # (MANUAL) 0.1 10^3/uL (0.1-1.4); BASOPHILS % (MANUAL) 0 % (0-2); EOSINOPHILS % (MANUAL) 0 % (0-6); LYMPHOCYTES % (MANUAL) 4 % (13-45); MONOCYTES % (MANUAL) 2 % (3-13); SEGMENTED NEUTROPHILS % (MAN) 94 % (42-78); TOTAL CELLS COUNTED 100
[2018-12-08 07:19] LABS: HYPOCHROMASIA SLIGHT; OVALOCYTES SLIGHT; PLATELET COMMENT ADEQUATE
[2018-12-08] MEDS: IPRATROPIUM/ALBUTEROL 0.5-2.5 MG/3 ML AMPUL NEB SCH ×4 (07:25→20:23)
[2018-12-08] MEDS: INSULIN LISPRO 100 UNIT/ML 3 ML VIAL SUBCUT SCH ×4 (08:16→21:05)
[2018-12-08] MEDS: DILTIAZEM HCL 120 MG CAP.SR.24H PO SCH (09:54)
[2018-12-08] MEDS: DOCUSATE SODIUM 100 MG CAPSULE PO SCH ×2 (09:54→17:21)
[2018-12-08] MEDS: PREDNISONE 20 MG TABLET PO SCH ×2 (09:54→17:20)
[2018-12-08] MEDS: PANTOPRAZOLE SODIUM 20 MG TABLET.DR PO SCH (09:54)
[2018-12-08] MEDS: GUAIFENESIN 600 MG TABLET.SA PO SCH ×2 (09:55→21:03)
[2018-12-08] MEDS: ENOXAPARIN SODIUM INJ 30 MG/0.3 ML DISP.SYRIN SUBCUT SCH (09:55)
[2018-12-08] MEDS: ACETAMINOPHEN 325 MG TABLET PO PRN (09:55)
[2018-12-08] MEDS: POLYETHYLENE GLYCOL 3350 POWDER 17 GM/1 PACKET PO SCH (09:55)
[2018-12-08] MEDS: DILTIAZEM HCL 180 MG CAPSULE.CR PO SCH (09:55)
[2018-12-08] MEDS: TIOTROPIUM BROMIDE DPI 5 CAP/KIT (18 MCG/CAP) IH SCH (09:57)
[2018-12-08] MEDS: FLUTICASONE NASAL SPRAY 50 MCG/SPRY 120 SPRAY/16 GM NASL SCH (09:58)
--- NOTE | 2018-12-08 11:00 | PDOC PROGRESS REPORT ---
Subjective Progress Note for:: 12/08/18 Subjective:: Patient is feeling better today Patient's potassium is all stable Still need BiPAP which helped the patient's breathing No fever no chills Reason For Visit: PNEUMONIA Physical Exam Vital Signs: Temp Pulse Resp BP Pulse Ox 97.7 F 93 20 148/69 H 100 12/08/18 07:34 12/08/18 07:34 12/08/18 07:34 12/08/18 07:34 12/08/18 07:34 Intake & Output 12/07/18 12/08/18 12/09/18 06:59 06:59 06:59 Intake Total 1746 1164 Output Total 1150 1650 Balance 596 -486 Weight 40.8 kg 38.8 kg General appearance: PRESENT: no acute distress, well-developed, well-nourished Head exam: PRESENT: atraumatic, normocephalic Eye exam: PRESENT: conjunctiva pink, EOMI, PERRLA. ABSENT: scleral icterus Ear exam: PRESENT: normal external ear exam Mouth exam: PRESENT: moist, tongue midline Neck exam: PRESENT: full ROM. ABSENT: carotid bruit, JVD, lymphadenopathy, thyromegaly Respiratory exam: PRESENT: decreased breath sounds Cardiovascular exam: PRESENT: RRR. ABSENT: diastolic murmur, rubs, systolic murmur Pulses: PRESENT: normal dorsalis pedis pul, +2 pedal pulses bilateral Vascular exam: PRESENT: normal capillary refill GI/Abdominal exam: PRESENT: normal bowel sounds, soft. ABSENT: distended, guarding, mass, organolmegaly, rebound, tenderness Rectal exam: PRESENT: deferred Neurological exam: PRESENT: alert, awake, oriented to person, oriented to place, oriented to time, oriented to situation, CN II-XII grossly intact. ABSENT: motor sensory deficit Psychiatric exam: PRESENT: appropriate affect, normal mood. ABSENT: homicidal ideation, suicidal ideation Skin exam: PRESENT: dry, intact, warm. ABSENT: cyanosis, rash Results Laboratory Results: 12/08/18 05:14 12/08/18 05:14 12/07/18 12/07/18 12/08/18 13:10 15:09 05:14 WBC 3.7 L RBC 3.39 L Hgb 9.9 L Hct 29.7 L MCV 88 MCH 29.3 MCHC 33.5 RDW 13.2 Plt Count 298 Seg Neutrophils % Not Reportable Lymphocytes % Not Reportable Monocytes % Not Reportable Eosinophils % Not Reportable Basophils % Not Reportable Absolute Neutrophils Not Reportable Absolute Lymphocytes Not Reportable Absolute Monocytes Not Reportable Absolute Eosinophils Not Reportable Absolute Basophils Not Reportable Carbonic Acid 1.88 H HCO3/H2CO3 Ratio 18:1 ABG pH 7.36 ABG pCO2 62.5 H ABG pO2 72.5 L ABG HCO3 34.2 H ABG O2 Saturation 93.5 L ABG Base Excess 6.9 FiO2 4.5L Sodium Potassium 4.6 D Chloride Carbon Dioxide Anion Gap BUN Creatinine Est GFR ( Amer) Est GFR (Non-Af Amer) Glucose Calcium 12/08/18 05:14 WBC RBC Hgb Hct MCV MCH MCHC RDW Plt Count Seg Neutrophils % Lymphocytes % Monocytes % Eosinophils % Basophils % Absolute Neutrophils Absolute Lymphocytes Absolute Monocytes Absolute Eosinophils Absolute Basophils Carbonic Acid HCO3/H2CO3 Ratio ABG pH ABG pCO2 ABG pO2 ABG HCO3 ABG O2 Saturation ABG Base Excess FiO2 Sodium 134.9 L Potassium 4.3 Chloride 92 L Carbon Dioxide 40 H* Anion Gap 3 L BUN 15 Creatinine 0.29 L Est GFR ( Amer) > 60 Est GFR (Non-Af Amer) > 60 Glucose 143 H Calcium 8.0 L 12/04/18 20:50 Troponin I 0.028 Impressions: Chest CT 12/05/18 00:00 IMPRESSION: Bilateral emphysematous changes with subpleural scar as described. There is some focal airspace disease along the right minor fissure probably atelectasis. There is a single indeterminate nodule in the right upper lobe medially as described most likely scar as well. Chest X-Ray 12/07/18 00:00 IMPRESSION: COPD. CHRONIC SCARRING. NO ACUTE RADIOGRAPHIC FINDING IN THE [facility] T. Assessment & Plan - Diagnosis (1) RLL pneumonia Qualifiers: Pneumonia type: due to unspecified organism Qualified Code(s): J18.1 - Lobar pneumonia, unspecified organism Is this a current diagnosis for this admission?: Yes Plan: Chest x-ray all clear will discontinue cefepime continues to Levaquin for another 7 days (2) Hypercapnic respiratory failure Qualifiers: Chronicity: acute Qualified Code(s): J96.02 - Acute respiratory failure with hypercapnia Is this a current diagnosis for this admission?: Yes Plan: Continues to follow with the Dr. Sanders's for further management will be required a BiPAP at night try to wean off from the BiPAP at day times and put on nasal cannula (3) COPD exacerbation Is this a current diagnosis for this admission?: Yes Plan: Continues to nebulizer treatment we will discontinues the IV Solu-Medrol put in the p.o. prednisone (4) Hyponatremia Is this a current diagnosis for this admission?: Yes Plan: Currently all resolved (5) History of Mycobacterium avium complex infection Is this a current diagnosis for this admission?: Yes Plan: We will get the sputum culture (6) Hyperlipidemia Is this a current diagnosis for this admission?: Yes (7) Anemia Qualifiers: Anemia type: unspecified type Qualified Code(s): D64.9 - Anemia, unspecified Is this a current diagnosis for this admission?: Yes (8) History of solitary pulmonary nodule Is this a current diagnosis for this admission?: Yes (9) Oral thrush Is this a current diagnosis for this admission?: Yes Plan: Start on nystatin suspension - Time Time Spent with patient: 15-24 minutes Medications reviewed and adjusted accordingly: Yes Anticipated discharge: Other Within: Other - Plan Summary Plan Summary: Discussed with the patient about potentially stay in the weekends follow Dr. Sanders
[2018-12-08] MEDS: LEVOFLOXACIN 500 MG/D5W RTU 500 MG/100 ML RTUPB IV SCH (21:03)
[2018-12-09] MEDS: NYSTATIN 500000 UNIT/5 ML UDCUP PO SCH ×4 (02:53→22:48)
[2018-12-09 04:41] LABS: ABSOLUTE LYMPHOCYTES (AUTO) 0.4 10^3/uL (0.5-4.7); ABSOLUTE MONOCYTES (AUTO) 1.1 10^3/uL (0.1-1.4); ABSOLUTE NEUT (AUTO) 5.2 10^3/uL (1.7-8.2); BASOPHILS % (AUTO) 0.1 % (0-2); HEMATOCRIT 31.1 % (36.0-47.0); HEMOGLOBIN 10.4 g/dL (12.0-15.5); LYMPHOCYTES % (AUTO) 6.4 % (13-45); MEAN CORPUSCULAR HEMOGLOBIN 29.4 pg (27.0-33.4); MEAN CORPUSCULAR HGB CONC 33.5 g/dL (32.0-36.0); MEAN CORPUSCULAR VOLUME 88 fl (80-97); PLATELET COUNT 344 10^3/uL (150-450); RED BLOOD COUNT 3.54 10^6/uL (3.72-5.28); RED CELL DISTRIBUTION WIDTH 13.5 % (11.5-14.0); SEGMENTED NEUTROPHILS % (AUTO) 77.5 % (42-78); TOTAL CELLS COUNTED % (AUTO) 100 %; WHITE BLOOD COUNT 6.7 10^3/uL (4.0-10.5)
[2018-12-09 05:03] LABS: BLOOD UREA NITROGEN 18 mg/dL (7-20); CALCIUM 8.8 mg/dL (8.4-10.2); CHLORIDE 88 mmol/L (98-107); GLUCOSE 101 mg/dL (75-110); POTASSIUM 4.1 mmol/L (3.6-5.0)
[2018-12-09 05:16] LABS: ANION GAP 4 (5-19); CARBON DIOXIDE 42 mmol/L (22-30)
[2018-12-09] MEDS: ACETAMINOPHEN 325 MG TABLET PO PRN ×2 (05:52→22:51)
[2018-12-09] MEDS: IPRATROPIUM/ALBUTEROL 0.5-2.5 MG/3 ML AMPUL NEB SCH ×4 (08:53→20:07)
[2018-12-09] MEDS: INSULIN LISPRO 100 UNIT/ML 3 ML VIAL SUBCUT SCH ×4 (09:39→22:45)
[2018-12-09] MEDS: DILTIAZEM HCL 120 MG CAP.SR.24H PO SCH (09:40)
[2018-12-09] MEDS: PREDNISONE 20 MG TABLET PO SCH ×2 (09:40→17:27)
[2018-12-09] MEDS: GUAIFENESIN 600 MG TABLET.SA PO SCH ×2 (09:40→22:49)
[2018-12-09] MEDS: DILTIAZEM HCL 180 MG CAPSULE.CR PO SCH (09:40)
[2018-12-09] MEDS: POLYETHYLENE GLYCOL 3350 POWDER 17 GM/1 PACKET PO SCH (09:41)
[2018-12-09] MEDS: PANTOPRAZOLE SODIUM 20 MG TABLET.DR PO SCH (09:41)
[2018-12-09] MEDS: ENOXAPARIN SODIUM INJ 30 MG/0.3 ML DISP.SYRIN SUBCUT SCH (09:41)
[2018-12-09] MEDS: DOCUSATE SODIUM 100 MG CAPSULE PO SCH ×2 (09:42→17:27)
[2018-12-09] MEDS: TIOTROPIUM BROMIDE DPI 5 CAP/KIT (18 MCG/CAP) IH SCH (09:45)
[2018-12-09] MEDS: FLUTICASONE NASAL SPRAY 50 MCG/SPRY 120 SPRAY/16 GM NASL SCH (09:45)
--- NOTE | 2018-12-09 11:35 | PDOC PROGRESS REPORT ---
Subjective Progress Note for:: 12/09/18 Subjective:: Patient seen by the bedside she was admitted for pneumonia management Reason For Visit: PNEUMONIA Physical Exam Vital Signs: Temp Pulse Resp BP Pulse Ox 98.2 F 82 18 139/63 H 98 12/09/18 03:37 12/09/18 07:00 12/09/18 03:37 12/09/18 03:37 12/09/18 03:37 Intake & Output 12/08/18 12/09/18 12/10/18 06:59 06:59 06:59 Intake Total 1164 752 Output Total 1650 1400 Balance -486 -648 Weight 38.8 kg 39.8 kg General appearance: PRESENT: no acute distress Eye exam: PRESENT: PERRLA Respiratory exam: PRESENT: clear to auscultation stephen, rhonchi Cardiovascular exam: PRESENT: +S1, +S2 GI/Abdominal exam: PRESENT: soft Neurological exam: PRESENT: alert Results Laboratory Results: 12/09/18 04:14 12/09/18 04:14 12/09/18 12/09/18 04:14 04:14 WBC 6.7 RBC 3.54 L Hgb 10.4 L Hct 31.1 L MCV 88 MCH 29.4 MCHC 33.5 RDW 13.5 Plt Count 344 Seg Neutrophils % 77.5 Lymphocytes % 6.4 L Monocytes % 16.0 H Eosinophils % 0.0 Basophils % 0.1 Absolute Neutrophils 5.2 Absolute Lymphocytes 0.4 L Absolute Monocytes 1.1 Absolute Eosinophils 0.0 Absolute Basophils 0.0 Sodium 134.3 L Potassium 4.1 Chloride 88 L Carbon Dioxide 42 H* Anion Gap 4 L BUN 18 Creatinine 0.28 L Est GFR ( Amer) > 60 Est GFR (Non-Af Amer) > 60 Glucose 101 Calcium 8.8 12/04/18 20:50 Troponin I 0.028 Impressions: Chest CT 12/05/18 00:00 IMPRESSION: Bilateral emphysematous changes with subpleural scar as described. There is some focal airspace disease along the right minor fissure probably atelectasis. There is a single indeterminate nodule in the right upper lobe medially as described most likely scar as well. Chest X-Ray 12/07/18 00:00 IMPRESSION: COPD. CHRONIC SCARRING. NO ACUTE RADIOGRAPHIC FINDING IN THE CHEST. Assessment & Plan - Diagnosis (1) Lobar pneumonia Is this a current diagnosis for this admission?: Yes Plan: Continue IV antibiotic (2) Respiratory failure with hypercapnia Qualifiers: Chronicity: chronic Qualified Code(s): J96.12 - Chronic respiratory failure with hypercapnia Is this a current diagnosis for this admission?: Yes (3) Chronic obstructive pulmonary disease with acute exacerbation Is this a current diagnosis for this admission?: Yes (4) Hypo-osmolality and hyponatremia Is this a current diagnosis for this admission?: Yes
[2018-12-09] MEDS: FLUTICASONE/VILANTEROL 200-25 MCG/DOSE IH SCH (15:01)
[2018-12-09] MEDS: LEVOFLOXACIN 500 MG/D5W RTU 500 MG/100 ML RTUPB IV SCH (22:49)
[2018-12-10] MEDS ORDERED: IPRATROPIUM/ALBUTEROL 0.5-2.5 MG/3 ML AMPUL NEB PRN ×2 (03:26→10:17)
[2018-12-10] MEDS: LEVALBUTEROL HCL NEB 1.25 MG/3 ML AMPUL NEB PRN (03:33)
[2018-12-10] MEDS: NYSTATIN 500000 UNIT/5 ML UDCUP PO SCH ×4 (04:07→21:51)
[2018-12-10 05:24] LABS: BLOOD UREA NITROGEN 12 mg/dL (7-20); CALCIUM 8.5 mg/dL (8.4-10.2); CHLORIDE 86 mmol/L (98-107); GLUCOSE 115 mg/dL (75-110); POTASSIUM 3.7 mmol/L (3.6-5.0)
[2018-12-10 05:52] LABS: ANION GAP 3 (5-19)
[2018-12-10 06:17] LABS: CARBON DIOXIDE 44 mmol/L (22-30)
[2018-12-10] MEDS: IPRATROPIUM/ALBUTEROL 0.5-2.5 MG/3 ML AMPUL NEB SCH ×4 (08:35→20:15)
[2018-12-10] MEDS: FLUTICASONE/VILANTEROL 200-25 MCG/DOSE IH SCH (09:04)
[2018-12-10] MEDS: TIOTROPIUM BROMIDE DPI 5 CAP/KIT (18 MCG/CAP) IH SCH (09:04)
[2018-12-10] MEDS: PANTOPRAZOLE SODIUM 20 MG TABLET.DR PO SCH (09:05)
[2018-12-10] MEDS: PREDNISONE 20 MG TABLET PO SCH ×2 (09:05→17:57)
[2018-12-10] MEDS: INSULIN LISPRO 100 UNIT/ML 3 ML VIAL SUBCUT SCH ×4 (09:05→21:48)
[2018-12-10] MEDS: FLUTICASONE NASAL SPRAY 50 MCG/SPRY 120 SPRAY/16 GM NASL SCH (09:05)
[2018-12-10] MEDS: DILTIAZEM HCL 180 MG CAPSULE.CR PO SCH (09:05)
[2018-12-10] MEDS: GUAIFENESIN 600 MG TABLET.SA PO SCH ×2 (09:05→21:51)
[2018-12-10] MEDS: DOCUSATE SODIUM 100 MG CAPSULE PO SCH ×2 (09:05→17:57)
[2018-12-10] MEDS: DILTIAZEM HCL 120 MG CAP.SR.24H PO SCH (09:05)
[2018-12-10] MEDS: ENOXAPARIN SODIUM INJ 30 MG/0.3 ML DISP.SYRIN SUBCUT SCH (09:06)
[2018-12-10] MEDS: POLYETHYLENE GLYCOL 3350 POWDER 17 GM/1 PACKET PO SCH (09:06)
--- NOTE | 2018-12-10 17:02 | PDOC PROGRESS REPORT ---
Subjective Progress Note for:: 12/10/18 Subjective:: Patient seen by the bedside she was admitted for pneumonia management Reason For Visit: PNEUMONIA Physical Exam Vital Signs: Temp Pulse Resp BP Pulse Ox 98.1 F 88 16 134/55 H 98 12/10/18 12:19 12/10/18 12:19 12/10/18 12:19 12/10/18 12:19 12/10/18 12:19 Intake & Output 12/09/18 12/10/18 12/11/18 06:59 06:59 06:59 Intake Total 752 942 355 Output Total 1400 1300 200 Balance -648 -358 155 Weight 39.8 kg 39.5 kg General appearance: PRESENT: no acute distress Eye exam: PRESENT: PERRLA Respiratory exam: PRESENT: rhonchi Cardiovascular exam: PRESENT: +S1, +S2 GI/Abdominal exam: PRESENT: soft Results Laboratory Results: 12/09/18 04:14 12/10/18 04:33 12/10/18 04:33 Sodium 133.1 L Potassium 3.7 Chloride 86 L Carbon Dioxide 44 H* Anion Gap 3 L BUN 12 Creatinine 0.23 L Est GFR ( Amer) > 60 Est GFR (Non-Af Amer) > 60 Glucose 115 H Calcium 8.5 12/06/18 19:21 Sputum Gram Stain - Final 12/06/18 19:21 Sputum Sputum Culture - Final Stenotrophomonas Maltophilia Normal Nadege Absent 12/04/18 21:13 Blood Blood Culture - Final NO GROWTH IN 5 DAYS 12/04/18 20:28 Blood Blood Culture - Final NO GROWTH IN 5 DAYS 12/04/18 20:50 Troponin I 0.028 Impressions: Chest CT 12/05/18 00:00 IMPRESSION: Bilateral emphysematous changes with subpleural scar as described. There is some focal airspace disease along the right minor fissure probably atelectasis. There is a single indeterminate nodule in the right upper lobe medially as described most likely scar as well. Chest X-Ray 12/07/18 00:00 IMPRESSION: COPD. CHRONIC SCARRING. NO ACUTE RADIOGRAPHIC FINDING IN THE CHEST. Assessment & Plan - Diagnosis (1) Lobar pneumonia Is this a current diagnosis for this admission?: Yes Plan: Continue IV antibiotic (2) Respiratory failure with hypercapnia Qualifiers: Chronicity: chronic Qualified Code(s): J96.12 - Chronic respiratory failure with hypercapnia Is this a current diagnosis for this admission?: Yes (3) Chronic obstructive pulmonary disease with acute exacerbation Is this a current diagnosis for this admission?: Yes (4) Hypo-osmolality and hyponatremia Is this a current diagnosis for this admission?: Yes
[2018-12-10] MEDS: LEVOFLOXACIN 500 MG/D5W RTU 500 MG/100 ML RTUPB IV SCH (21:51)
[2018-12-10] MEDS: ACETAMINOPHEN 325 MG TABLET PO PRN (21:53)
[2018-12-11] MEDS: NYSTATIN 500000 UNIT/5 ML UDCUP PO SCH ×2 (03:17→09:18)
[2018-12-11] MEDS: IPRATROPIUM/ALBUTEROL 0.5-2.5 MG/3 ML AMPUL NEB SCH ×2 (08:29→11:40)
[2018-12-11] MEDS: INSULIN LISPRO 100 UNIT/ML 3 ML VIAL SUBCUT SCH (09:07)
[2018-12-11] MEDS: FLUTICASONE/VILANTEROL 200-25 MCG/DOSE IH SCH (09:24)
[2018-12-11] MEDS: FLUTICASONE NASAL SPRAY 50 MCG/SPRY 120 SPRAY/16 GM NASL SCH (09:24)
[2018-12-11] MEDS: TIOTROPIUM BROMIDE DPI 5 CAP/KIT (18 MCG/CAP) IH SCH (09:24)
[2018-12-11] MEDS: DOCUSATE SODIUM 100 MG CAPSULE PO SCH (09:25)
[2018-12-11] MEDS: DILTIAZEM HCL 120 MG CAP.SR.24H PO SCH (09:25)
[2018-12-11] MEDS: DILTIAZEM HCL 180 MG CAPSULE.CR PO SCH (09:25)
[2018-12-11] MEDS: GUAIFENESIN 600 MG TABLET.SA PO SCH (09:25)
[2018-12-11] MEDS: ENOXAPARIN SODIUM INJ 30 MG/0.3 ML DISP.SYRIN SUBCUT SCH (09:25)
[2018-12-11] MEDS: PANTOPRAZOLE SODIUM 20 MG TABLET.DR PO SCH (09:25)
[2018-12-11] MEDS: PREDNISONE 20 MG TABLET PO SCH (09:25)
[2018-12-11] MEDS: POLYETHYLENE GLYCOL 3350 POWDER 17 GM/1 PACKET PO SCH (09:26)
--- NOTE | 2018-12-11 09:32 | PDOC DISCHARGE SUMMARY ---
General - Admit/Disc Date/PCP Admission Date/Primary Care Provider: 12/04/18 22:35 AMY MONSIVAIS MD Discharge Date: 12/11/18 - Discharge Diagnosis (1) RLL pneumonia Is this a current diagnosis for this admission?: Yes Summary: Currently all resolving (2) Hypercapnic respiratory failure Is this a current diagnosis for this admission?: Yes Summary: Patient is back to the nasal cannula follow with the Dr. 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 Nebulizer] 1 each MC Q6HP PRN #1 kit PRN Reason: Nebulizer [Nebulizer Machine] 1 each MC ASDIR PRN #1 kit PRN Reason: Prednisone [Deltasone 20 mg Tablet] 20 mg PO DAILY #5 tablet Home Medications: Albuterol Sulfate [Proair HFA Inhalation Aerosol 8.5 gm MDI] 2 puff IH Q6HP PRN 12/05/18 Diltiazem HCl [Cartia Xt] 300 mg PO DAILY 12/05/18 Fluticasone Propionate [Flonase Nasal [place] 50 Mcg/[place] 16 gm] 1 spray NASL DAILY 12/05/18 Fluticasone/Salmeterol [Advair 250-50 Diskus 14 Dose/Diskus] 1 puff IH Q12 12/05/18 Montelukast Sodium [Singulair 10 mg Tablet] 10 mg PO QPM 12/05/18 Omeprazole 20 mg PO DAILY 12/05/18 Polyethylene Glycol 3350 [Miralax Powder 17 gm/Packet] 17 gm PO DAILY 12/05/18 Tiotropium [place] [Spiriva Handihaler 5 Cap/Kit (18 Mcg/Cap)] 1 cap IH DAILY 12/05/18 Levalbuterol HCl [Xopenex Neb 1.25 mg/3 ml Ampul] 1.25 mg NEB RTQ4HP PRN #120 vial.neb 12/11/18 Levofloxacin [Levaquin 500 mg Tablet] 500 mg PO DAILY #7 tablet 12/11/18 Nebulizer Accessories [A.i.r.s. Nebulizer] 1 each MC Q6HP PRN #1 kit 12/11/18 Nebulizer [Nebulizer Machine] 1 each MC ASDIR PRN #1 kit 12/11/18 Prednisone [Deltasone 20 mg Tablet] 20 mg PO DAILY #5 tablet 12/11/18 History of Present Illness History of Present Illness: AMIRAH CHEW is a 73 year old female This is a 73-year-old female with a significant history of the COPD history of the Mycobacterium avium complexAnd history of the pulmonary nodules and history of the anemia currently see Dr. Solorzano as outpatients for the COPD and the nodules treated with a several antibiotic course for this on and off came to the emergency department with the increasing the more shortness of the breath for the last 2 daysAnd also increasing the sputum secretions with the yellowish- greenish color and not feeling well and the patient's oxygen saturations go down which he normally required to treat 2 to 3 L oxygen at home in emergency departm ent patient was put on the BiPAP and feels better CO2 retention's was high When I saw the patient on the IMCU patient is currently on a BiPAP doing okay denied any chest pain denied any abdominal pain no nausea no vomiting Patient son on the bedside requesting to see Dr. Solorzano but is not available as per discussed with him will ask Dr. Sanders's to see him Patient to son on the bedside discussed with the patient's CODE STATUS patients do not want intubation and ventilations Start the patient on IV antibiotic nebulizer treatment since IV Solu-Medrol Hospital Course Hospital Course: This is a 73-year-old female as medical problem about came to the emergency department with respiratory distress failure and COPD acute exacerbation of the pneumonia Was treated with the BiPAP respiratory treatment IV steroid and IV antibiotic Seen by the Curseen the pulmonary She is doing very well patient was back to the nasal cannula and feel 100% better Patient put the p.o. antibiotics p.o. steroids and arrange the home health physical therapy and discussed with the son on the bedside regarding the patient's current conditions Patient is outpatients follow with the pulmonary Physical Exam Vital Signs: Temp Pulse Resp BP Pulse Ox 97.5 F 105 H 20 135/62 H 94 12/11/18 03:48 12/11/18 08:31 12/11/18 08:31 12/11/18 03:48 12/11/18 08:31 Intake & Output 12/10/18 12/11/18 12/12/18 06:59 06:59 06:59 Intake Total 942 655 Output Total 1300 1350 Balance -358 -695 Weight 39.5 kg 38.1 kg General appearance: PRESENT: no acute distress, well-developed, well-nourished Head exam: PRESENT: atraumatic, normocephalic Eye exam: PRESENT: conjunctiva pink, EOMI, PERRLA. ABSENT: scleral icterus Ear exam: PRESENT: normal external ear exam Mouth exam: PRESENT: moist, tongue midline Neck exam: PRESENT: full ROM. ABSENT: carotid bruit, JVD, lymphadenopathy, thyromegaly Respiratory exam: PRESENT: clear to auscultation stephen Cardiovascular exam: PRESENT: RRR. ABSENT: diastolic murmur, rubs, systolic murmur Pulses: PRESENT: normal dorsalis pedis pul, +2 pedal pulses bilateral Vascular exam: PRESENT: normal capillary refill GI/Abdominal exam: PRESENT: normal bowel sounds, soft. ABSENT: distended, guarding, mass, organolmegaly, rebound, tenderness Rectal exam: PRESENT: deferred Musculoskeletal exam: PRESENT: ambulatory Neurological exam: PRESENT: alert, awake, oriented to person, oriented to place, oriented to time, oriented to situation, CN II-XII grossly intact. ABSENT: motor sensory deficit Psychiatric exam: PRESENT: appropriate affect, normal mood. ABSENT: homicidal ideation, suicidal ideation Skin exam: PRESENT: dry, intact, warm. ABSENT: cyanosis, rash Results Laboratory Results: 12/09/18 04:14 12/10/18 04:33 12/06/18 19:21 Sputum Gram Stain - Final 12/06/18 19:21 Sputum Sputum Culture - Final Stenotrophomonas Maltophilia Normal Nadege Absent 12/04/18 20:50 Troponin I 0.028 Impressions: Chest CT 12/05/18 00:00 IMPRESSION: Bilateral emphysematous changes with subpleural scar as described. There is some focal airspace disease along the right minor fissure probably atelectasis. There is a single indeterminate nodule in the right upper lobe medially as described most likely scar as well. Chest X-Ray 12/07/18 00:00 IMPRESSION: COPD. CHRONIC SCARRING. NO ACUTE RADIOGRAPHIC FINDING IN THE CHEST. Qualifiers - * PATIENT BEING DISCHARGED WITH ANY OF THE FOLLOWING DIAGNOSIS: No VTE patient discharged on overlapping Therapy?: Yes Acute Heart Failure - Is this a Heart Failure Patient?: No Documentation of LVEF assessment?: Yes Plan Time Spent: Greater than 30 Minutes - Follow outpatients Dr. Sanders Follow in office 1 week
[2018-12-11 11:27] VITALS: BP 139/62
--- NOTE | 2018-12-13 16:41 | PDOC PROGRESS REPORT ---
Subjective Progress Note for:: 12/07/18 Subjective:: Unchanged Reason For Visit: PNEUMONIA Physical Exam Vital Signs: Temp Pulse Resp BP Pulse Ox 98.2 F 115 H 22 H 148/73 H 100 12/07/18 09:01 12/07/18 09:01 12/07/18 09:01 12/07/18 09:01 12/07/18 09:01 Intake & Output 12/06/18 12/07/18 12/08/18 06:59 06:59 06:59 Intake Total 1892 1596 654 Output Total 100 1150 Balance 1792 446 654 Weight 38.7 kg 40.8 kg General appearance: PRESENT: no acute distress, cooperative, disheveled, thin Head exam: PRESENT: atraumatic, normocephalic Eye exam: PRESENT: conjunctiva pale, EOMI. ABSENT: nystagmus, periorbital swel ling Mouth exam: PRESENT: dry mucosa, neck supple, tongue midline Neck exam: ABSENT: carotid bruit, JVD, lymphadenopathy, thyromegaly Respiratory exam: PRESENT: decreased breath sounds, prolonged expiratory phas, rhonchi, unlabored, wheezes. ABSENT: rales, retraction, stridor Cardiovascular exam: PRESENT: RRR, +S1, +S2 Pulses: PRESENT: normal radial pulses GI/Abdominal exam: PRESENT: hypoactive bowel sounds, soft. ABSENT: mass, tenderness Extremities exam: PRESENT: pedal edema. ABSENT: calf tenderness, clubbing, join t swelling Musculoskeletal exam: ABSENT: deformity, dislocation Neurological exam: PRESENT: altered, awake Skin exam: PRESENT: dry, warm Results Laboratory Results: 12/07/18 04:43 12/07/18 04:43 12/06/18 12/07/18 12/07/18 12:58 04:43 04:43 WBC 4.3 RBC 3.48 L Hgb 10.1 L Hct 30.4 L MCV 87 MCH 29.1 MCHC 33.3 RDW 13.2 Plt Count 315 Carbonic Acid 1.81 H HCO3/H2CO3 Ratio 18:1 ABG pH 7.37 ABG pCO2 60.1 H ABG pO2 92.7 ABG HCO3 34.2 H ABG O2 Saturation 96.7 ABG Base Excess 6.8 FiO2 35% Sodium 135.7 L Potassium 5.8 H Chloride 95 L Carbon Dioxide 37 H Anion Gap 4 L BUN 17 Creatinine 0.35 L Est GFR ( Amer) > 60 Est GFR (Non-Af Amer) > 60 Glucose 139 H Calcium 8.6 12/04/18 23:10 Clean Catch Midstream Urine Culture - Final Mixed Urogenital Nadege 12/04/18 20:50 Troponin I 0.028 Impressions: Chest CT 12/05/18 00:00 IMPRESSION: Bilateral emphysematous changes with subpleural scar as described. There is some focal airspace disease along the right minor fissure probably atelectasis. There is a single indeterminate nodule in the right upper lobe medially as described most likely scar as well. Chest X-Ray 12/07/18 00:00 IMPRESSION: COPD. CHRONIC SCARRING. NO ACUTE RADIOGRAPHIC FINDING IN THE CHEST. Assessment & Plan - Diagnosis (1) COPD exacerbation Is this a current diagnosis for this admission?: Yes Plan: Continue current bronchodilator therapy (2) History of Mycobacterium avium complex infection Is this a current diagnosis for this admission?: Yes Plan: Sputum's for AFB daily x3 patient does not need to be on isolation (3) Hypercapnic respiratory failure Qualifiers: Chronicity: acute Qualified Code(s): J96.02 - Acute respiratory failure with hypercapnia Is this a current diagnosis for this admission?: Yes Plan: NIPPV
== END 2018-12-11 12:13 | disposition home health service (06) | DRG 193 ==
LOC: EDBD → ER 19:16 → EH 22:35 → 3S 12-05 00:30 → 3W 12-05 22:52
PROVIDERS: ADMIT Family Medicine; ATTEND Family Medicine
DX: J18.1 Lobar pneumonia, unspecified organism (principal); J96.02 Acute respiratory failure with hypercapnia; E87.1 Hypo-osmolality and hyponatremia; J44.1 Chronic obstructive pulmonary disease with (acute) exacerbation; J44.0 Chronic obstructive pulmonary disease with (acute) lower respiratory infection; I10 Essential (primary) hypertension; K21.0 Gastro-esophageal reflux disease with esophagitis; F32.9 Major depressive disorder, single episode, unspecified; Z88.0 Allergy status to penicillin; Z88.8 Allergy status to other drugs, medicaments and biological substances; E78.5 Hyperlipidemia, unspecified; F17.211 Nicotine dependence, cigarettes, in remission; B37.9 Candidiasis, unspecified; D64.9 Anemia, unspecified; R91.1 Solitary pulmonary nodule; Z66 Do not resuscitate
CPT/HCPCS: 36415; 36600; 71045; 71260; 80048; 80053; 81001; 82803; 82962; 83605; 84132; 84484; 85025; 85027; 85610; 87040; 87070; 87077; 87086; 87186; 87205; 93005; 93010; 94660; 96365; 99285; J0456; J0692; J1650; J1815; J1956; J2920; J2930; J3490; J7030; J7512; J7620; S0028

== ENCOUNTER 2019-07-04 11:53 | Day surgery (SDC) | payer MEDICARE ==
[~2019-07-04 11:53] MED LIST: CHONDR SU A NA/HYALUR INTRAOC KIT (SURGICARE) ONE; DORZOLAMIDE HCL 2%/TIMOLOL MALEAT 0.5% OPH SOLN 10 ML OS PRN; EPINEPHRINE INJ/PF 1 MG/1 ML AMPULE ONE; KETOROLAC TROMETHAMINE 0.45% 4 DROP/0.4 ML DROPERETTE OS PRN; LIDOCAINE 1%/PHENYLEPHRINE 1.5% 1 ML VIAL ONE
[2019-07-04] MEDS: BESIFLOXACIN HCL 0.6% OPH SUSP 5 ML BOTTLE OS PRN ×3 (12:31→13:15)
[2019-07-04] MEDS: CYCLOPENTOLATE 0.2%/PHENYLEPHRINE 1% OPH SOLN 2 ML OS PRN ×3 (12:31→12:52)
[2019-07-04] MEDS: TETRACAINE HCL 0.5% OPH SOLN 4 ML OS PRN ×3 (12:31→12:57)
[2019-07-04] MEDS: TROPICAMIDE 1% OPH SOLN 15 ML OS PRN ×3 (12:31→12:52)
[2019-07-04] MEDS ORDERED: MIDAZOLAM 2 MG/2 ML INJ ONE (12:38)
[2019-07-04] MEDS ORDERED: ACETAMINOPHEN 325 MG TABLET ONE (14:06)
--- NOTE | 2019-07-04 14:30 | Operative Report ---
Operative Report-[facility] Operative Report: DATE OF SURGERY: July 04, 2019 PREOPERATIVE DIAGNOSIS: NUCLEAR CATARACT, LEFT EYE. POSTOPERATIVE DIAGNOSIS: NUCLEAR CATARACT, LEFT EYE. PROCEDURE PERFORMED: PHACOEMULSIFICATION WITH POSTERIOR CHAMBER INTRAOCULAR LENS IMPLANT, LEFT EYE. SURGEON: Gabriel Vu DO MEDICATIONS AND ANESTHESIA: Versed: IV Versed Tetracaine drops: 1 to 2 drops given as needed COMPLICATION: None INDICATIONS FOR SURGERY: Medical necessity: Best corrected visual acuity worse than 20/40 secondary to cataracts with impairment of ability to carry out needs or desired activities, blurred vision, visual distortion, reduced contrast sensitivity and/or glare with association functional impairment and supporting documentation/testing, and cataracts causing symptomatic impairment of visual functions not corrected with tolerable changes in glasses or contact lenses interfering with activities of daily life. PROCEDURE: Consent: The risks, benefits and alternatives of this procedures was discussed with the patient. The patient read and signed the consent forms, was identified and was seated in the exam chair. IOL: MX 60E 20.5 IOL Diopters: Phacoemulsification with posterior chamber intraocular lens implant: The face was prepped with 5% povidone iodine solution, and a few drops of 5% povidone iodine solution was instilled into the inferior fornix. A non-fenestrated drape was placed over the eye and the lids were parted with the speculum. A paracentesis was made with a 15 degree blade, and 1% lidocaine MPF followed by viscoelastic was injected into the anterior chamber. A 2.4 mm metal micro- keratome was used to create a temporal clear corneal incision. A circular anterior capsulorrhexis was created, followed by hydro-dissection and hydro- delineation. The phacoemulsification hand piece was inserted and the nucleus was removed with the Phaco chop technique. The irrigation-aspiration hand piece was used to remove the residual cortex, and vacuum the posterior capsule. The capsular bag was inflated and viscoelastic and the above-mentioned IOL was injected into the eye with care to insert both leaning and trailing haptics in the capsular bag. The irrigation/aspiration hand piece was reinserted to remove residual viscoelastic from the capsular bag and anterior chamber. The corneal incision was hydrated, and anterior chamber was inflated with sterile BSS via the paracentesis site, and found to be watertight. Postop medication:1 drop of prednisolone into operative by followed by 1 drop of Cosopt into operative eye followed by 1 drop of Besivance intraoperative by Other:
== END 2019-07-04 14:16 | disposition home or self-care (01) ==
LOC: SC 11:53
PROVIDERS: ATTEND Ophthalmology
DX: H25.12 Age-related nuclear cataract, left eye (principal); J44.9 Chronic obstructive pulmonary disease, unspecified; I10 Essential (primary) hypertension; E78.00 Pure hypercholesterolemia, unspecified; K21.9 Gastro-esophageal reflux disease without esophagitis; Z79.51 Long term (current) use of inhaled steroids; Z79.899 Other long term (current) drug therapy; Z87.891 Personal history of nicotine dependence; Z99.81 Dependence on supplemental oxygen
CPT/HCPCS: 66984; 00142; V2632; A9270 ×2; J2250; J3490 ×2; J0171; J2370; 142

== ENCOUNTER 2019-07-18 10:14 | Day surgery (SDC) | payer MEDICARE ==
[~2019-07-18 10:14] MED LIST changes: -CHONDR SU A NA/HYALUR INTRAOC KIT (SURGICARE) ONE; -DORZOLAMIDE HCL 2%/TIMOLOL MALEAT 0.5% OPH SOLN 10 ML OS PRN; -EPINEPHRINE INJ/PF 1 MG/1 ML AMPULE ONE; +FENTANYL CITRATE INJ/PF 100 MCG/2 ML AMPUL ONE; +KETOROLAC TROMETHAMINE 0.45% 4 DROP/0.4 ML DROPERETTE OD PRN; -KETOROLAC TROMETHAMINE 0.45% 4 DROP/0.4 ML DROPERETTE OS PRN; -LIDOCAINE 1%/PHENYLEPHRINE 1.5% 1 ML VIAL ONE; +MIDAZOLAM 2 MG/2 ML INJ ONE; +ONDANSETRON HCL INJ/PF 4 MG/2 ML SDV ONE
[2019-07-18] MEDS: TROPICAMIDE 1% OPH SOLN 15 ML OD PRN ×3 (10:24→10:44)
[2019-07-18] MEDS: BESIFLOXACIN HCL 0.6% OPH SUSP 5 ML BOTTLE OD PRN ×4 (10:24→11:28)
[2019-07-18] MEDS: CYCLOPENTOLATE 0.2%/PHENYLEPHRINE 1% OPH SOLN 2 ML OD PRN ×4 (10:24→10:44)
[2019-07-18] MEDS: TETRACAINE HCL 0.5% OPH SOLN 4 ML OD PRN ×3 (10:25→11:02)
[2019-07-18] MEDS: CHONDR SU A NA/HYALUR INTRAOC KIT (SURGICARE) ONE ×2 (11:07→11:19)
[2019-07-18] MEDS: EPINEPHRINE INJ/PF 1 MG/1 ML AMPULE ONE ×2 (11:07→11:19)
[2019-07-18] MEDS: LIDOCAINE 1%/PHENYLEPHRINE 1.5% 1 ML VIAL ONE ×2 (11:07→11:19)
[2019-07-18] MEDS: DORZOLAMIDE HCL 2%/TIMOLOL MALEAT 0.5% OPH SOLN 10 ML OD PRN ×2 (11:28)
--- NOTE | 2019-07-18 14:03 | Operative Report ---
Operative Report-[facility] Operative Report: DATE OF SURGERY: July 18, 2019 PREOPERATIVE DIAGNOSIS: NUCLEAR CATARACT, RIGHT EYE. POSTOPERATIVE DIAGNOSIS: NUCLEAR CATARACT, RIGHT EYE. PROCEDURE PERFORMED: PHACOEMULSIFICATION WITH POSTERIOR CHAMBER INTRAOCULAR LENS IMPLANT, RIGHT EYE. SURGEON: Gabriel Vu DO MEDICATIONS AND ANESTHESIA: Versed: IV Versed Tetracaine drops: 1 to 2 drops given as needed COMPLICATION: None INDICATIONS FOR SURGERY: Medical necessity: Best corrected visual acuity worse than 20/40 secondary to cataracts with impairment of ability to carry out needs or desired activities, blurred vision, visual distortion, reduced contrast sensitivity and/or glare with association functional impairment and supporting documentation/testing, and cataracts causing symptomatic impairment of visual functions not corrected with tolerable changes in glasses or contact lenses interfering with activities of daily life. PROCEDURE: Consent: The risks, benefits and alternatives of this procedures was discussed with the patient. The patient read and signed the consent forms, was identified and was seated in the exam chair. IOL: MX 60 E 21.0 IOL Diopters: Phacoemulsification with posterior chamber intraocular lens implant: The face was prepped with 5% povidone iodine solution, and a few drops of 5% povidone iodine solution was instilled into the inferior fornix. A non-fenestrated drape was placed over the eye and the lids were parted with the speculum. A paracentesis was made with a 15 degree blade, and 1% lidocaine MPF followed by viscoelastic was injected into the anterior chamber. A 2.4 mm metal micro- keratome was used to create a temporal clear corneal incision. A circular anterior capsulorrhexis was created, followed by hydro-dissection and hydro- delineation. The phacoemulsification hand piece was inserted and the nucleus was removed with the Phaco chop technique. The irrigation-aspiration hand piece was used to remove the residual cortex, and vacuum the posterior capsule. The capsular bag was inflated and viscoelastic and the above-mentioned IOL was injected into the eye with care to insert both leaning and trailing haptics in the capsular bag. The irrigation/aspiration hand piece was reinserted to remove residual viscoelastic from the capsular bag and anterior chamber. The corneal incision was hydrated, and anterior chamber was inflated with sterile BSS via the paracentesis site, and found to be watertight. Postop medication: 1 drop of prednisolone into operative by followed by 1 drop of Cosopt into operative eye followed by 1 drop of Besivance intraoperative by other:
== END 2019-07-18 12:01 | disposition home or self-care (01) ==
LOC: SC 10:14
PROVIDERS: ATTEND Ophthalmology
DX: H25.11 Age-related nuclear cataract, right eye (principal); Z98.42 Cataract extraction status, left eye; Z87.891 Personal history of nicotine dependence; J44.9 Chronic obstructive pulmonary disease, unspecified; I10 Essential (primary) hypertension; E78.00 Pure hypercholesterolemia, unspecified; Z79.51 Long term (current) use of inhaled steroids; Z79.899 Other long term (current) drug therapy; I49.9 Cardiac arrhythmia, unspecified
CPT/HCPCS: 66984; 00142; J2250; J3490 ×2; A9270; J0171; J2405; 142; J3010

== ENCOUNTER → 2019-07-27 | Outpatient (CLI) | payer MEDICARE ==
[2019-07-27 11:13] LABS: ANION GAP 9 (5-19); BLOOD UREA NITROGEN 19 mg/dL (7-20); CALCIUM 9.4 mg/dL (8.4-10.2); CARBON DIOXIDE 33 mmol/L (22-30); CHLORIDE 93 mmol/L (98-107); GLUCOSE 93 mg/dL (75-110); POTASSIUM 4.3 mmol/L (3.6-5.0)
== END ==
LOC: OD 09:59
PROVIDERS: ATTEND Family Medicine
DX: E87.5 Hyperkalemia (principal)
CPT/HCPCS: 36415; 80048